=== PATIENT | female | born 1955 | race Caucasian/White ===

== ENCOUNTER → 2016-12-31 | Outpatient (CLI) | payer MEDICAID | LOC: FIMAGING 14:12 | DX: Z12.31 Encounter for screening mammogram for malignant neoplasm of breast (principal) | CPT/HCPCS: G0202 ==

== ENCOUNTER → 2017-01-09 | Outpatient (CLI) | payer MEDICAID | LOC: FIMAGING 09:00 | PROVIDERS: ATTEND Internal Medicine | DX: R92.8 Other abnormal and inconclusive findings on diagnostic imaging of breast (principal); Z09 Encounter for follow-up examination after completed treatment for conditions other than malignant neoplasm ==

== ENCOUNTER → 2017-01-21 | Outpatient (CLI) | payer MEDICAID ==
[~2017-01-21] MED LIST: THROMBIN (BOVINE) 5,000 UNIT VIAL TP ONE
[2017-02-01 08:39] LABS: ACCESSION # HR17-17333; INTERPRETATION See Comments
== END ==
LOC: FIMAGING 11:36
PROVIDERS: ATTEND Internal Medicine
PROC: 0HBT3ZX Excision of Right Breast, Percutaneous Approach, Diagnostic (ICD-10-PCS; principal; 2017-01-21)
DX: C50.411 Malignant neoplasm of upper-outer quadrant of right female breast (principal); R92.0 Mammographic microcalcification found on diagnostic imaging of breast
CPT/HCPCS: G0206

== ENCOUNTER → 2017-02-08 | Outpatient (CLI) | payer MEDICAID | LOC: FIMAGING 14:10 | PROVIDERS: ATTEND Internal Medicine Hematology & Oncology | DX: C50.411 Malignant neoplasm of upper-outer quadrant of right female breast (principal) ==

== ENCOUNTER → 2017-02-10 | Outpatient (CLI) | payer MEDICAID | LOC: FIMAGING 14:04 | PROVIDERS: ATTEND Internal Medicine Hematology & Oncology | DX: R05 Cough (principal); C50.919 Malignant neoplasm of unspecified site of unspecified female breast ==

== ENCOUNTER → 2017-02-12 | Outpatient (CLI) | payer MEDICAID ==
[~2017-02-12] MED LIST changes: +LIDOCAINE 1% 30 ML SDV ONE; +NA BICARBONATE 50 MEQ/50 ML VIAL ONE; -THROMBIN (BOVINE) 5,000 UNIT VIAL TP ONE
== END ==
LOC: FIMAGING 12:13
PROVIDERS: ATTEND Internal Medicine Hematology & Oncology
DX: R59.0 Localized enlarged lymph nodes (principal); C50.911 Malignant neoplasm of unspecified site of right female breast

== ENCOUNTER → 2017-02-14 | Outpatient (CLI) | payer MEDICAID | LOC: BRMIMAGING 14:13 | PROVIDERS: ATTEND Internal Medicine Hematology & Oncology | DX: Z13.820 Encounter for screening for osteoporosis (principal); C50.411 Malignant neoplasm of upper-outer quadrant of right female breast ==

== ENCOUNTER → 2017-02-14 | Outpatient (CLI) | payer MEDICAID ==
[~2017-02-14] MED LIST changes: +GADOBUTROL 10 ML VIAL IVP ONE; -LIDOCAINE 1% 30 ML SDV ONE; -NA BICARBONATE 50 MEQ/50 ML VIAL ONE
== END ==
LOC: FIMAGING 07:05
PROVIDERS: ATTEND Surgery
DX: C50.411 Malignant neoplasm of upper-outer quadrant of right female breast (principal)
CPT/HCPCS: 0159T; 77059; A9585; C8908

== ENCOUNTER → 2017-02-25 | Outpatient (CLI) | payer MEDICAID ==
[~2017-02-25] MED LIST changes: -GADOBUTROL 10 ML VIAL IVP ONE; +LIDOCAINE 1% 30 ML SDV ONE; +NA BICARBONATE 50 MEQ/50 ML VIAL ONE
== END ==
LOC: FIMAGING 12:13
PROVIDERS: ATTEND Internal Medicine Hematology & Oncology
PROC: 07B33ZX Excision of Right Upper Extremity Lymphatic, Percutaneous Approach, Diagnostic (ICD-10-PCS; principal; 2017-02-25)
DX: N63 Unspecified lump in breast (principal)

== ENCOUNTER → 2017-03-08 | Outpatient (CLI) | payer MEDICAID | LOC: FIMAGING 07:31 | PROVIDERS: ATTEND Surgery | PROC: 3E0W3HZ Introduction of Radioactive Substance into Lymphatics, Percutaneous Approach (ICD-10-PCS; principal; 2017-03-08) | DX: C50.919 Malignant neoplasm of unspecified site of unspecified female breast (principal) | CPT/HCPCS: 38792; A9520 ==

== ENCOUNTER 2017-04-12 08:34 | Inpatient (IN) | payer MEDICAID ==
[2017-04-12] MEDS ORDERED: LIDOCAINE 1% 2 ML INJ ID PRN (08:59)
[2017-04-12] MEDS ORDERED: LR 1,000 ML IV ONE (08:59)
[2017-04-12] MEDS ORDERED: BUPIVACAINE 0.25% 30 ML SDV ONE (09:44)
[2017-04-12] MEDS ORDERED: BACITRACIN 50,000 UNITS/10 ML SYR IRR ONE (09:45)
[2017-04-12] MEDS ORDERED: GENTAMICIN SULFATE 80 MG/2 ML VIAL ONE (09:45)
[2017-04-12] MEDS ORDERED: ceFAZolin 1 GM/5 ML SYR ONE (09:45)
[2017-04-12] MEDS ORDERED: SCOPOLAMINE HYDROBROMIDE 1.5 MG PATCH TD ONE ×2 (09:47→09:54)
[2017-04-12] MEDS ORDERED: MIDAZOLAM 2 MG/2 ML VIAL IVP ONE (09:47)
--- NOTE | 2017-04-12 09:49 | PDANEPAE ---
ANE History of Present Illness Patient presents for mastectomy and reconstruction ANE Past Medical History - Cardiovascular History Hx Hypertension: No Hx Arrhythmias: No Hx Chest Pain: No Hx Coronary Artery / Peripheral Vascular Disease: No Hx CHF / Valvular Disease: No Hx Palpitations: No - Pulmonary History Hx COPD: No Hx Asthma/Reactive Airway Disease: No Hx Recent Upper Respiratory Infection: No Hx Oxygen in Use at Home: No Hx Sleep Apnea: No Sleep Apnea Screening Result - Last Documented: Negative Pulmonary History Comment: PROLONGED COUGH 02/10/17 TREATED WITH ANTIBIOTIC - Neurologic History Hx Cerebrovascular Accident: No Hx Seizures: No Hx Dementia: No - Endocrine History Hx Diabetes: No Endocrine History Comment: HYPOTHYROID - Renal History Hx Renal Disorders: No - Liver History Hx Hepatic Disorders: No - Neurological & Psychiatric Hx Hx Neurological and Psychiatric Disorders: Yes Neurological / Psychiatric History Comment: MAJOR DEPRESSIVE DISORDER. ANXIETY - Cancer History Hx Cancer: Yes Cancer History Comment: BREAST - Congenital Disorder History Hx Congenital Disorders: No - GI History Hx Gastrointestinal Disorders: No - Other Health History Other Health History: CHRONIC HERPES - Chronic Pain History Chronic Pain: No - Surgical History Prior Surgeries: RT LUMPECTOMY 02/2017. APPY/LESLYE. RT ANKLE RECONSTRUCTION ANE Review of Systems - Exercise capacity Exercise capacity: >=4 METS METS (RN): 5 METS ANE Patient History - Allergies Allergies/Adverse Reactions: Sulfa (Sulfonamide Antibiotics) Allergy (Verified 04/02/17 19:26) Rash - Home Medications Home Medications: Acyclovir 800 mg PO DAILY 04/02/17 [Last Taken 04/12/17] Bupropion HCl [Wellbutrin Xl] 300 mg PO DAILY 04/02/17 [Last Taken 04/12/17] Escitalopram Oxalate [Lexapro] 20 mg PO DAILY 04/02/17 [Last Taken 04/12/17] Levothyroxine [Synthroid 75 mcg (*)] 75 mcg PO DAILY06 04/02/17 [Last Taken ] Liothyronine Sodium [Cytomel 25 mcg (*)] 12.5 mcg PO DAILY 04/02/17 [Last Taken 04/12/17] Multivitamins [Multivitamin (*)] 1 each PO DAILY 04/02/17 [Last Taken 04/12/17] - NPO status NPO Since - Liquids (Date): 04/12/17 NPO Since - Liquids (Time): 07:00 NPO Since - Solids (Date): 04/11/17 NPO Since - Solids (Time): 23:00 - Anes Hx Anes Hx: post operative nausea - Smoking Hx Smoking Status: Never smoked ANE Labs/Vital Signs - Vital Signs Blood Pressure: 113/66 Heart Rate: 74 Respiratory Rate: 16 O2 Sat (%): 92 Height: 173.99 cm Weight: 86.183 kg ANE Physical Exam - Airway Mallampati Score: Class 2 Mouth exam: normal dental/mouth exam - Pulmonary Pulmonary: no respiratory distress - Cardiovascular Cardiovascular: regular rate and rhythym - ASA Status ASA Status: II ANE Anesthesia Plan Anesthesia Plan: general endotracheal anesthesia, GA w LMA (RBA discussed, patient agrees to proceed)
[2017-04-12] MEDS ORDERED: MIDAZOLAM 2 MG/2 ML VIAL ONE (09:54)
[2017-04-12] MEDS ORDERED: PROPOFOL/EMULSION 500 MG/50 ML BOTTLE IV ONE ×2 (09:57→12:07)
[2017-04-12] MEDS ORDERED: PROPOFOL 200 MG/20 ML VIAL ONE (09:57)
[2017-04-12] MEDS ORDERED: fentaNYL 100 MCG/2 ML INJ ONE ×4 (09:57→14:50)
--- NOTE | 2017-04-12 10:49 | PDHPUP ---
History & Physical Update H&P update statement: This history and physical update is based on an assessment of the patient which was completed after admission or registration (within 24 hours), but prior to the surgery/procedure. H&P update: H&P reviewed & patient examined, no change in patient's condition since H&P completed
[2017-04-12] MEDS ORDERED: BUPIVACAINE/EPI 0.5% 30 ML SDV ONE (11:20)
[2017-04-12] MEDS ORDERED: HYDROmorphONE/DILAUDID 1 MG/ML SYR IVP PRN (12:18)
[2017-04-12] MEDS ORDERED: TEMAZEPAM 15 MG CAP PO PRN (12:18)
[2017-04-12] MEDS ORDERED: ONDANSETRON 4 MG/2 ML VIAL IVP PRN ×2 (12:18→13:58)
[2017-04-12] MEDS ORDERED: HYDROCODONE/APAP 5/325 TAB PO PRN (12:18)
[2017-04-12] MEDS ORDERED: PROMETHAZINE HCL 25 MG/ML INJ IVP PRN (12:18)
[2017-04-12] MEDS ORDERED: DEXAMETHASONE 4 MG/ML VIAL ONE (12:24)
[2017-04-12] MEDS ORDERED: ONDANSETRON 4 MG/2 ML VIAL ONE (12:24)
[2017-04-12] MEDS ORDERED: LR 1,000 ML IV SCH (12:30)
[2017-04-12] MEDS ORDERED: PHENYLEPHRINE HCL 100 MCG/ML SYR ONE ×2 (13:09)
[2017-04-12] MEDS ORDERED: NALOXONE HCL 0.4 MG/ML INJ IVP PRN (13:58)
--- NOTE | 2017-04-12 14:16 | POSTANESTH ---
Post Anesthetic Evaluation Cardiovascular Status: Normal, Stable Respiratory Status: Normal, Stable Level of Consciousness/Mental Status: Can Participate in Eval Pain Control: Adequate, Prn Tx Ordered Nausea/Vomiting Control: Adequate, Prn Tx Ordered Complications Possibly Related to Anesthesia: None Noted
[2017-04-12] MEDS: fentaNYL 100 MCG/2 ML INJ IVP PRN ×2 (14:52→15:02)
[2017-04-12] MEDS: ceFAZolin 2 GM/DEXTROSE 100 ML IV SCH ×2 (16:16→23:27)
--- NOTE | 2017-04-12 17:57 | POSTOPPROG ---
Post Op Note Date of Operation: 04/12/17 Surgeon: Chaim Ramirez Features Editor: Flor Jacobs PA-C Anesthesiologist: Good Wells MD Anesthesia: GET(General Endotracheal) Pre-op Diagnosis: Right breast cancer Post-op Diagnosis: Same Procedure: Right modified radical mastectomy, left SCV port, immed TE reconstruction Inf/Abcess present in the surg proc area at time of surgery?: No EBL: 50-100 Drains: Ramon Bates Specimen(s): breast, nodes
[2017-04-12] MEDS: KETOROLAC 15 MG/1 ML SDV IVP SCH ×2 (18:16→23:22)
--- NOTE | 2017-04-12 18:23 | GOP ---
[f rep st] OPERATIVE REPORT DATE OF OPERATION: 04/12/2017 SURGEON: Lavonne Paniagua Jr., MD PERSONNEL RESEARCH SCIENTIST: Orlando Rachel, CONCRETE FENCE BUILDER. By surgeon request. Skilled physician office assistant was necessary du e to the technical complexity of the case and desire to minimize patient anesthesia time. ANESTHESIA: General inhalational anesthetic. PREOPERATIVE DIAGNOSIS: Right breast cancer. POSTOPERATIVE DIAGNOSIS: Right breast cancer. PROCEDURE PERFORMED: Immediate right breast reconstruction following mastectomy and axillary lymph node dissection. FINDINGS: ESTIMATED BLOOD LOSS: During reconstruction was less than 10 cc. INDICATIONS: The patient is a female diagnosed with right breast cancer referred by Dr. Chaim Ramirez to discuss mastectomy reconstruction. She was deemed an excellent candidate for immediate tissue e xpander placement at the time of mastectomy. She was taken to the operating room for that purpose. DESCRIPTION OF PROCEDURE: After risks and benefits of procedure were explained to the patient highl ighting bleeding, infection, need for tissue oracle adf developer removal, asymmetry, damage to vessels or nerve s, numbness, weakness, and need for revisional procedures, formal operative consent was obtained. S he was taken to the operating room. After right-sided mastectomy and right axillary dissection were performed by Dr. Ramirez, the pocket was irrigated with triple antibiotic saline. The field was re-draped with new sterile towels. New ins trumentation, electrocautery, and suction were utilized. Skin edges were wiped down with triple ant ibiotic saline, and the pocket rinsed a final time. A subpectoral pocket was dissected to allow wendi cement of the tissue oracle adf developer. This was performed through an inferomedial incision in the origin of the pectoralis major muscle. Pocket was dissected beneath serratus and the pectoralis minor muscle . Once it was free to fit the tissue oracle adf developer, the tissue oracle adf developer was thoroughly tested, evacuated of air, and filled with 300 cc of normal saline. It was soaked in triple antibiotic saline. It wa s then sutured down to the chest wall in the correct anatomic position using 2-0 PDS suture. An All oDerm medium contour acellular dermis graft was then triple rinsed in saline, soaked in triple antib iotic saline, and used to reconstruct the inferior pole of the breast with a running 2-0 Vicryl sutu re. The pocket was irrigated again with triple antibiotic saline solution with meticulous hemostasi s assured. Two drains were placed, 1 in the inferior gutter of the breast and 1 into the axillary d issection site. Both were sutured into place. The mastectomy flap edges were inspected and were he althy with good blood supply. The mastectomy was closed using everting deep dermal 3-0 Monocryl sut ure and further everted using surgical elsa. An additional 100 cc of fluid was placed transcutan eously into the tissue oracle adf developer for a final fill volume of 400 cc. She had light sterile dressings applied in the operating room. She was extubated in the OR, taken to the recovery room awake and in stable condition. TISSUE SOFTWARE SALES EXECUTIVE: Jonglaan [employer] 133 FX-14-T 650 cc device filled to 400 cc. DRAINS: 2 IVETTE drains were placed. MASTECTOMY WEIGHT: Approximately 675 g. COMPLICATIONS: None. /[id number]/MODL
--- NOTE | 2017-04-12 19:13 | SOAPPROG ---
SOAP Progress Note Assessment/Plan: Assessment:doing well postop. min pain. no sob. small left PTX on CXR. will repeat later this evening. discussed with nursing staff, patient and family. Plan: 04/12/17 19:11 Objective: Vital Signs Temp Pulse Resp BP Pulse Ox 36.4 C 60 16 89/61 L 97 04/12/17 18:42 04/12/17 18:42 04/12/17 18:42 04/12/17 18:42 04/12/17 18:42 04/11/17 04/12/17 04/13/17 05:59 05:59 05:59 Intake Total 325 Output Total 50 Balance 275 ICD10 Worksheet Patient Problems: Problems Problem Status Onset Breast cancer Acute - ICD10 Problem Qualifiers (1) Breast cancer Qualifiers: Breast location: B Estrogen receptor status: E Patient sex: P Laterality: L
--- NOTE | 2017-04-12 20:13 | GOP ---
[f rep st] OPERATIVE REPORT DATE OF OPERATION: 04/12/2017 SURGEON: Chaim Ramirez MD PLASTIC SURGEON: Lavonne Paniagua MD TURFGRASS MANAGEMENT PROFESSOR: Flor Iraheta PA-C. ANESTHESIA: General. ANESTHESIOLOGIST: Kartik Wells MD PREOPERATIVE DIAGNOSIS: Locally advanced right breast carcinoma. POSTOPERATIVE DIAGNOSIS: Locally advanced right breast carcinoma. PROCEDURE PERFORMED: 1. Right modified radical mastectomy with left subclavian vein single-lumen power port placement. 2. Immediate tissue wire weaving loom setter reconstruction. FINDINGS: See below. INDICATIONS: 61-year-old female with a large locally advanced right breast carcinoma. She underwent attempted lumpectomy with sentinel node sampling. The patient was found have a large tumor with multiple positive margins as well as multiple positive nodes. She is undergoing the aforementioned procedures at this time. Risks and benefits were explained of bleeding, infection, tumor recurrence, skin flap necrosis, need for additional postoperative adjuvant therapy, arm edema, nerve injury, as well as pneumothorax and poor bowel function. All questions were answered. She desires to proceed. A surgical first assistant is standard and necessary and customary for the safe performance of this procedure. DESCRIPTION OF PROCEDURE: General anesthesia was induced. The left neck was initially interrogated with ultrasonography. No succinct jugular vein was identified for port placement. The subclavian vein was next directly punctured. The clavipectoral space was notably tight. The subclavian vein was directly punctured followed by easy guidewire passage which was confirmed using intraoperative fluoroscopy. A counter incision was made on the chest wall and the port tunneled cephalad. The vein was dilated and the catheter passed toward the atrial junction without resistance. There was good venous blood return with the port withdrawal. The port was secured to the chest wall with a solitary PDS suture. The wound was closed in layers with absorbable suture followed by Dermabond. The right breast was next elliptically incised incorporating the nipple-areolar complex. Using electrocautery, skin flaps were created up to the clavicle, sternum, inframammary fold and latissimus dorsi muscle laterally. The breast was taken high up in the axillary tail of [facility]. The prior lumpectomy cavity was included in its entirety along with a small residual seroma cavity. The breast was peeled from medial to lateral, incorporating the pectoralis major fascia. This was tagged for orientation and sent for permanent processing. The axilla was densely scarred down from her prior sentinel node sampling. The axillary vein was identified and dissected inferiorly. The indurated mass was off the chest wall. The intercostal brachial nerve was transected during this dissection, given its inclusion in the aforementioned inflammatory change. The long thoracic nerve and thoracodorsal nerves were easily identified and preserved throughout the remaining dissection. The remaining axillary contents were all removed and sent for permanent processing. Satisfactory hemostasis was assured throughout the breast cavity and axilla. Care of the case was turned to Dr. Paniagua for tissue wire weaving loom setter placement and wound closure. /[id number]/MODL MTDD
[2017-04-13] MEDS ORDERED: LEVOTHYROXINE 75 MCG TAB PO SCH (06:00)
[2017-04-13] MEDS: ceFAZolin 2 GM/DEXTROSE 100 ML IV SCH (06:13)
[2017-04-13] MEDS: KETOROLAC 15 MG/1 ML SDV IVP SCH ×2 (06:13→12:46)
[2017-04-13] MEDS ORDERED: buPROPion XL 150 MG TAB PO SCH (09:00)
[2017-04-13] MEDS ORDERED: NON-FORMULARY NEW DRUG (Acyclovir [Acyclovir] 800 MG) PO SCH (09:00)
[2017-04-13] MEDS ORDERED: NON-FORMULARY NEW DRUG (Escitalopram Oxalate [Lexapro] 20 MG) PO SCH (09:00)
[2017-04-13] MEDS ORDERED: ACYCLOVIR 400 MG TAB PO SCH (09:00)
[2017-04-13] MEDS ORDERED: ENOXAPARIN 30 MG/0.3 ML SYR SC SCH (09:00)
[2017-04-13] MEDS ORDERED: ESCITALOPRAM OXALATE 10 MG TAB PO SCH (09:00)
[2017-04-13] MEDS ORDERED: NON-FORMULARY NEW DRUG (Bupropion Hcl [Wellbutrin Xl] 300 MG) PO SCH (09:00)
[2017-04-13] MEDS ORDERED: LIOTHYRONINE SODIUM 25 MCG TAB PO SCH (09:00)
--- NOTE | 2017-04-13 10:15 | SOAPPROG ---
SOAP Progress Note Assessment/Plan: Assessment: no overnight issues. min left chest pain. no sob. min surg site pain. avss. flaps pink. dianna serosang. port site clean. doing well. small left PTX - will repeat one final CXR prior to discharge to ensure no significant enlargement - no tube needed at this time. care plan discussed with patient and nursing staff. Plan: 04/12/17 19:11 04/13/17 10:14 Objective: Vital Signs Temp Pulse Resp BP Pulse Ox 36.8 C 68 16 89/61 L 93 04/13/17 08:00 04/13/17 08:00 04/13/17 08:00 04/13/17 08:00 04/13/17 08:00 04/12/17 04/13/17 04/14/17 05:59 05:59 05:59 Intake Total 2522 Output Total 1510 470 Balance 1007 -470 ICD10 Worksheet Patient Problems: Problems Problem Status Onset Breast cancer Acute - ICD10 Problem Qualifiers (1) Breast cancer Qualifiers: Breast location: B Estrogen receptor status: E Patient sex: P Laterality: L
[2017-04-13 12:14] VITALS: TEMP 98.7
[2017-04-13 13:04] VITALS: BP 96/62; PULSE 71; RESP 17
--- NOTE | 2017-04-13 14:35 | GOP ---
[f rep st] OPERATIVE REPORT DATE OF OPERATION: 04/13/2017 SURGEON: Chaim Ramirez MD ANESTHESIA: General. PREOPERATIVE DIAGNOSIS: Left pneumothorax. POSTOPERATIVE DIAGNOSIS: Left pneumothorax. PROCEDURE PERFORMED: Percutaneous left chest tube. DESCRIPTION OF PROCEDURE: Left chest was infiltrated with 1% lidocaine. The medial second intercostal space was identified. A percutaneous tube was placed over the rib into the thoracic cavity. Bubbling was noted within the syringe. Catheter was passed to its hub. There was good rhythmical respiration noted within the Heimlich valve mechanism. Catheter was secured to the chest with a silk suture followed by Tegaderm placement. Portable chest X was obtained immediately upon completion. /[id number]/MODL MTDD
[2017-04-13 14:48] VITALS: O2SAT 92
== END 2017-04-13 15:02 | disposition home or self-care (01) | DRG 582 ==
LOC: F3E 08:34 → OBSVTOIN 12:20 → F1N 15:16
PROVIDERS: ADMIT Surgery; ATTEND Specialist
PROC: 07T50ZZ Resection of Right Axillary Lymphatic, Open Approach (ICD-10-PCS; principal; 2017-04-12 10:00)
PROC: 0HHT0NZ Insertion of Tissue Expander into Right Breast, Open Approach (ICD-10-PCS; principal; 2017-04-12 10:00)
PROC: 0HTT0ZZ Resection of Right Breast, Open Approach (ICD-10-PCS; principal; 2017-04-12 10:00)
PROC: 0W9930Z Drainage of Right Pleural Cavity with Drainage Device, Percutaneous Approach (ICD-10-PCS; 2017-04-13)
DX: C50.411 Malignant neoplasm of upper-outer quadrant of right female breast (principal); J93.9 Pneumothorax, unspecified; E03.9 Hypothyroidism, unspecified; F32.9 Major depressive disorder, single episode, unspecified
CPT/HCPCS: C1788; J1100; J1642; J1650; J1885; J2250; J2370; J2405; J2704; J3010; Q4116

== ENCOUNTER → 2017-04-16 | Outpatient (CLI) | payer MEDICAID | LOC: FIMAGING 15:10 | PROVIDERS: ATTEND Surgery | DX: J93.9 Pneumothorax, unspecified (principal) ==

== ENCOUNTER → 2017-04-19 | Outpatient (CLI) | payer MEDICAID | LOC: FIMAGING 14:38 | PROVIDERS: ATTEND Surgery | DX: J93.9 Pneumothorax, unspecified (principal); C50.911 Malignant neoplasm of unspecified site of right female breast; J90 Pleural effusion, not elsewhere classified; Z95.9 Presence of cardiac and vascular implant and graft, unspecified; Z90.11 Acquired absence of right breast and nipple ==

== ENCOUNTER → 2017-05-03 | Outpatient (CLI) | payer MEDICAID ==
[~2017-05-03] MED LIST changes: +IOPAMIDOL (ISOVUE 370) 100 ML BTL IV ONE; -LIDOCAINE 1% 30 ML SDV ONE; -NA BICARBONATE 50 MEQ/50 ML VIAL ONE
== END ==
LOC: FIMAGING 12:21
PROVIDERS: ATTEND Surgery
DX: T82.594A Other mechanical complication of infusion catheter, initial encounter (principal); C50.919 Malignant neoplasm of unspecified site of unspecified female breast
CPT/HCPCS: J1642; Q9967

== ENCOUNTER → 2017-05-24 | Outpatient (CLI) | payer MEDICAID ==
[~2017-05-24] MED LIST changes: +IOPAMIDOL (ISOVUE-300) 150 ML BTL ONE
== END ==
LOC: FIMAGING 11:50
PROVIDERS: ATTEND Nurse Practitioner
DX: T82.594A Other mechanical complication of infusion catheter, initial encounter (principal); C50.411 Malignant neoplasm of upper-outer quadrant of right female breast
CPT/HCPCS: Q9967

== ENCOUNTER → 2017-05-27 | Day surgery (SDC) | payer MEDICAID | END | disposition home or self-care (01) | LOC: FIMAGING 10:15 | PROVIDERS: ATTEND Nurse Practitioner | DX: Z46.89 Encounter for fitting and adjustment of other specified devices (principal); C50.919 Malignant neoplasm of unspecified site of unspecified female breast; Z53.9 Procedure and treatment not carried out, unspecified reason ==

== ENCOUNTER → 2017-05-29 | Outpatient (CLI) | payer MEDICAID | LOC: FIMAGING 15:05 | PROVIDERS: ATTEND Surgery | DX: Z09 Encounter for follow-up examination after completed treatment for conditions other than malignant neoplasm (principal); Z45.2 Encounter for adjustment and management of vascular access device ==

== ENCOUNTER 2017-07-18 19:50 | Inpatient (IN) | payer MEDICAID ==
[2017-07-18] MEDS ORDERED: NS 1,000 ML IV ONE ×2 (20:04→21:38)
--- NOTE | 2017-07-18 20:29 | EDPHY ---
H & P Stated Complaint: fever, cough, exhaustion x6 days Time Seen by Provider: 07/18/17 20:03 HPI/ROS: CHIEF COMPLAINT: Fever, cough, fatigue HISTORY OF PRESENT ILLNESS: This patient is a 61 y/o female with history of breast cancer diagnosed 12/2016 presenting with fever, cough, and fatigue onset earlier today. She is currently s/p mastectomy and undergoing chemotherapy. Her first treatment for Taxol was Saturday, six days ago. Following this, she began to feel fatigued and has been sleeping around 20 hours per day. She developed shortness of breath and a cough on Saturday. Her cough is increased with movement. She has had persistent nausea and vomiting which she believes could be associated with her chemotherapy, her cough, or both. She endorses muscle aches. She noted redness developing over her right breast two days ago. She has a breast treating engineer in place, placed . She has not had prior infections in that area. Today, she noted a temperature of 102 degrees Fahrenheit on her home thermometer so presents for evaluation. She denies chest pain, diarrhea, urinary complaints, or other associated symptoms. REVIEW OF SYSTEMS: A 10 point review of systems was performed and is negative with the exception of the elements mentioned in the history of present illness. - Personal History Current Tetanus/Diphtheria Vaccine: Yes Current Tetanus Diphtheria and Acellular Pertussis (TDAP): Yes - Medical/Surgical History PMH: 1. Breast cancer 2. Right mastectomy 3. Asthma 4. Depression 5. Cholecystectomy 4. Ankle surgery Hx Asthma: Yes Hx Chronic Respiratory Disease: No Hx Diabetes: No Hx Cardiac Disease: No Hx Renal Disease: No Hx Cirrhosis: No Hx Alcoholism: No Hx HIV/AIDS: No Hx Splenectomy or Spleen Trauma: No Other PMH: S/P Sarah-1976;S/P Ankle Repair-1996;S/P Rt Breast Lumpectomy W/Node biopsy;Depression;Asthma,. right mastectomy,. breast CA - Social History Smoking Status: Never smoked Additional Social History: at bedside. . - Physical Exam Exam: General Appearance: Alert, nontoxic-appearing Eyes: Pupils equal and round, no conjunctival injection ENT, Mouth: Mucous membranes moist, no pharyngeal erythema Neck: Normal inspection, no adenopathy Right breast: s/p mastectomy; swelling, tenderness, erythema of entire right breast area Respiratory: Lungs are clear to auscultation Cardiovascular: Regular rate and rhythm Gastrointestinal: Abdomen is soft and non-tender Neurological: A&O, nonfocal, normal gait Skin: Warm and dry. Healing rash related to prior AC chemotherapy treatment. Extremities: Nontender, no pedal edema Psychiatric: Mood and affect normal Constitutional: Initial Vital Signs Temperature (C) 37.6 C 07/18/17 19:55 Heart Rate 125 H 07/18/17 19:55 Respiratory Rate 22 H 07/18/17 19:55 Blood Pressure 99/66 L 07/18/17 19:55 O2 Sat (%) 96 07/18/17 19:55 O2 Delivery Mode Room Air Allergies/Adverse Reactions: soy Allergy (Severe, Verified 07/19/17 09:24) Sulfa (Sulfonamide Antibiotics) Allergy (Verified 07/18/17 19:59) Rash Home Medications: Medication Instructions Recorded Bupropion HCl [Wellbutrin Xl] 300 mg PO DAILY 04/02/17 Escitalopram Oxalate [Lexapro] 20 mg PO DAILY 04/02/17 Liothyronine Sodium [Cytomel 25 12.5 mcg PO DAILY 04/02/17 mcg (*)] Multivitamins [Multivitamin (*)] 1 each PO DAILY 04/02/17 Hydrocodone/APAP 5/325 [Decorah 1 - 2 tab PO Q4HRS PRN #0 tab 04/13/17 5/325 (*)] Acyclovir [Zovirax 400 mg (*)] 400 mg PO DAILY 07/18/17 LORazepam [Lorazepam] 0.5 mg PO TID PRN 07/18/17 Levothyroxine [Synthroid 50 mcg 50 mcg PO DAILY06 07/18/17 (*)] Nystatin 100,000 unit PO QID PRN 07/18/17 Ondansetron [Ondansetron Odt] 8 mg PO Q6 PRN 07/18/17 Prochlorperazine Maleate 10 mg PO TID PRN 07/18/17 [Compazine 10mg (*)] Medical Decision Making - Diagnostics Imaging Results: Chest X-Ray 07/18/17 20:04 Impression: Chest negative for acute abnormality, with no definite fever source identified. ED Course/Re-evaluation: This pt presents with right breast cellulitis and fever. Meets SIRS criteria because of heart rate and respiratory rate. Underlying breast implant, query implant-related infection.. White count is normal and there is no evidence of neutropenia. Blood cultures drawn. IV normal saline 1 L. Ancef 1 g IV given. Chest x-ray reveals no evidence of pneumonia. Initial lactate is normal. 21:[address] Nava, hospitalist. He accepts admission for IV antibiotics. Repeat heart rate and blood pressure are normal after IV fluids. Temperature to 102. Ibuprofen 600 mg orally given. Differential Diagnosis: Differential diagnosis includes pyelonephritis, cholecystitis, influenza, cellulitis, pneumonia, abscess, meningitis. - Data Points Laboratory Results: Laboratory Results 07/18/17 20:30 07/18/17 20:30 07/18/17 20:30 Smear Review By Rhonda VIVEROS MD Medications Given: Acetaminophen (Tylenol) 650 mg PO Q4HRS PRN PRN Reason: Pain, Mild/Fever, Can Take PO Stop: 01/14/18 23:04 Last Admin: 07/19/17 12:23 Dose: 650 mg Acyclovir (Acyclovir) 400 mg PO DAILY EDWIN Stop: 08/18/17 08:59 Last Admin: 07/19/17 09:31 Dose: 400 mg Bupropion HCl (Wellbutrin Xl) 300 mg PO DAILY EDWIN Stop: 01/15/18 08:59 Last Admin: 07/19/17 09:32 Dose: 300 mg Escitalopram Oxalate (Lexapro) 20 mg PO DAILY EDWIN Stop: 01/15/18 08:59 Last Admin: 07/19/17 09:33 Dose: 20 mg Cefazolin Sodium/Dextrose (Ancef 1 Gm (Premix)) 50 mls @ 200 mls/hr IV Q8H EDWIN PRN Reason: Protocol Stop: 08/18/17 03:59 Last Admin: 07/19/17 11:20 Dose: 50 mls Sodium Chloride (Ns) 1,000 mls @ 75 mls/hr IV CONT [facility] Stop: 01/14/18 23:14 Last Admin: 07/19/17 00:00 Dose: 1,000 mls Multivitamins (Tab-A-Cash) 1 each PO DAILY EDWIN Stop: 01/15/18 08:59 Last Admin: 07/19/17 09:33 Dose: 1 each Nystatin (Mycostatin Oral Liquid) 100,000 unit PO QID PRN; Protocol PRN Reason: THRUSH Stop: 08/17/17 23:08 Last Admin: 07/19/17 05:28 Dose: 100,000 unit Ondansetron HCl (Zofran) 4 mg IVP Q4HRS PRN PRN Reason: Nausea/Vomiting, Can't Take PO Stop: 01/14/18 23:04 Last Admin: 07/19/17 05:24 Dose: 4 mg Promethazine HCl (Phenergan) 6.25 - 12.5 mg IVP Q6HRS PRN PRN Reason: Nausea/Vomiting, Use 2nd Stop: 01/14/18 23:04 Last Admin: 07/19/17 11:20 Dose: 6.25 mg Discontinued Medications Acetaminophen (Tylenol) 1,000 mg PO ONCE ONE Stop: 07/18/17 21:27 Last Admin: 07/18/17 21:38 Dose: 1,000 mg Enoxaparin Sodium (Lovenox) 40 mg SC DAILY EDWIN Stop: 01/15/18 08:59 Last Admin: 07/19/17 09:34 Dose: 40 mg Sodium Chloride (Ns) 1,000 mls @ 0 mls/hr IV ONCE ONE; Wide Open PRN Reason: Protocol Stop: 07/18/17 20:05 Last Admin: 07/18/17 20:10 Dose: 1,000 mls Cefazolin Sodium/Dextrose (Ancef 1 Gm (Premix)) 50 mls @ 200 mls/hr IV EDNOW ONE PRN Reason: Protocol Stop: 07/18/17 20:48 Last Admin: 07/18/17 21:07 Dose: 50 mls Sodium Chloride (Ns) 1,000 mls @ 0 mls/hr IV ONCE ONE PRN Reason: Wide Open Stop: 07/18/17 21:39 Last Admin: 07/18/17 21:38 Dose: 1,000 mls Sodium Chloride (Ns) 1,000 mls @ 3,000 mls/hr IV ONCE ONE Stop: 07/19/17 12:15 Last Admin: 07/19/17 12:11 Dose: 1,000 mls Departure - Departure Disposition: [facility] Acute Clinical Impression: Cellulitis of right breast Condition: Fair Report Scribed for: Sadia Shields Report Scribed by: Sharon Frederick Date of Report: 07/18/17 Time of Report: 20:29 Physician Review and Approval Statement: 07/18/17 20:29 Portions of this note were transcribed by a certified medical technician assistant. I personally performed a history, physical exam, medical decision making, and confirmed accuracy of information the transcribed note.
[2017-07-18 20:49] LABS: ABSOLUTE IMMATURE GRANULOCYTES 0.09 10^3/uL (0.00-0.10); ADD DIFF? NO; ADD MORPH? YES; ADD SCAN? NO; ATYPICAL LYMPHOCYTE FLAG 0 (0-99); FRAGMENT RBC FLAG 20 (0-99); HEMATOCRIT 25.8 % (38.0-47.0); HEMOGLOBIN 8.7 g/dL (12.6-16.3); LEFT SHIFT FLG 0 (0-99); LIPEMIA HEMOLYSIS FLAG 80 (0-99); MEAN CELL HEMOGLOBIN 30.1 pg (27.9-34.1); MEAN CELL HEMOGLOBIN CONCENTR. 33.7 g/dL (32.4-36.7); MEAN CELL VOLUME 89.3 fL (81.5-99.8); MEAN PLATELET VOLUME 9.8 fL (8.7-11.7); PLATELET CLUMPS FLAG 10 (0-99); PLATELET COUNT 341 10^3/uL (150-400); RED BLOOD CELL COUNT 2.89 10^6/uL (4.18-5.33)
[2017-07-18 20:53] LABS: RED CELL DISTRIBUTION WIDTH 21.3 % (11.5-15.2)
[2017-07-18 21:03] LABS: ANION GAP 11 mEq/L (8-16); CALCIUM 8.9 mg/dL (8.5-10.4); CARBON DIOXIDE 20 mEq/l (22-31); CHLORIDE 98 mEq/L (97-110); GLOMERULAR FILTRATION RATE 57; GLUCOSE 106 mg/dL (70-100); POTASSIUM 4.1 mEq/L (3.5-5.2); SODIUM 129 mEq/L (134-144)
[2017-07-18 21:16] LABS: ELLIPTOCYTES 1+; KERATOCYTES 1+; MACROCYTES 1+; MICROCYTES 1+; PLATELET ESTIMATE ADEQUATE (ADEQ)
[2017-07-18] MEDS ORDERED: ACETAMINOPHEN 500 MG TAB PO ONE (21:26)
[2017-07-18] MEDS ORDERED: ONDANSETRON 4 MG/2 ML VIAL IVP PRN (23:05)
[2017-07-18] MEDS ORDERED: LORazepam 0.5 MG TAB PO PRN (23:05)
[2017-07-18] MEDS ORDERED: HYDROCODONE/APAP 5/325 TAB PO PRN (23:05)
[2017-07-19] MEDS: NS 1,000 ML IV SCH
[2017-07-19 00:05] LABS: COLOR YELLOW; LEUKOCYTE ESTERASE,URINE NEGATIVE (NEGATIVE); NITRITE,URINE NEGATIVE (NEGATIVE)
[2017-07-19 05:16] LABS: % IMMATURE GRANULYOCYTES 0.8 % (0.0-1.1); ABSOLUTE IMMATURE GRANULOCYTES 0.05 10^3/uL (0.00-0.10); ADD DIFF? NO; ADD MORPH? YES; ADD SCAN? NO; ATYPICAL LYMPHOCYTE FLAG 0 (0-99); FRAGMENT RBC FLAG 20 (0-99); HEMATOCRIT 22.6 % (38.0-47.0); HEMOGLOBIN 7.2 g/dL (12.6-16.3); LEFT SHIFT FLG 10 (0-99); LIPEMIA HEMOLYSIS FLAG 80 (0-99); MEAN CELL HEMOGLOBIN 29.9 pg (27.9-34.1); MEAN CELL HEMOGLOBIN CONCENTR. 31.9 g/dL (32.4-36.7); MEAN CELL VOLUME 93.8 fL (81.5-99.8); MEAN PLATELET VOLUME 9.8 fL (8.7-11.7); PLATELET CLUMPS FLAG 10 (0-99); PLATELET COUNT 272 10^3/uL (150-400); RED BLOOD CELL COUNT 2.41 10^6/uL (4.18-5.33)
[2017-07-19 05:21] LABS: RED CELL DISTRIBUTION WIDTH 21.5 % (11.5-15.2)
[2017-07-19] MEDS: NYSTATIN SUSP 500000 UNIT/5 ML UDCUP PO PRN (05:28)
[2017-07-19 05:42] LABS: ANION GAP 9 mEq/L (8-16); CALCIUM 8.1 mg/dL (8.5-10.4); CARBON DIOXIDE 18 mEq/l (22-31); CHLORIDE 110 mEq/L (97-110); CREATININE 0.8 mg/dL (0.6-1.0); GLOMERULAR FILTRATION RATE > 60; GLUCOSE 90 mg/dL (70-100); MAGNESIUM 2.1 mg/dL (1.6-2.3); POTASSIUM 4.4 mEq/L (3.5-5.2); SODIUM 137 mEq/L (134-144)
[2017-07-19 06:15] LABS: PLATELET ESTIMATE ADEQUATE (ADEQ)
[2017-07-19 06:16] LABS: ELLIPTOCYTES 1+; MACROCYTES 1+; MICROCYTES 1+
[2017-07-19 06:17] LABS: KERATOCYTES 1+
[2017-07-19] MEDS ORDERED: ENOXAPARIN 40 MG/0.4 ML SYR SC SCH (09:00)
[2017-07-19] MEDS: ACYCLOVIR 400 MG TAB PO SCH (09:31)
[2017-07-19] MEDS: buPROPion XL 150 MG TAB PO SCH (09:32)
[2017-07-19] MEDS: MULTIVITAMINS 1 EACH TAB PO SCH (09:33)
[2017-07-19] MEDS: ESCITALOPRAM OXALATE 10 MG TAB PO SCH (09:33)
--- NOTE | 2017-07-19 10:19 | GHP ---
[f rep st] HISTORY AND PHYSICAL DATE OF ADMISSION: 07/18/2017 DATE OF SERVICE: 07/19/2017 SOURCE: Patient provides history, appears reliable. Her EMR was also reviewed. CHIEF COMPLAINT: Right breast cellulitis and fever. HISTORY OF PRESENT ILLNESS: This is a very pleasant 61-year-old female with history of recently diagnosed right breast cancer, status post lumpectomy and status post implant spacer, who presents to the emergency department with complaints of 2-day history of fever, fatigue and cough. The patient states that she began to notice some increased warmth and swelling on the right breast several days ago. She has been increasingly fatigued and sleeping almost 20-22 hours of her last few days. She has also noted some increase in dyspnea on exertion during this time of fatigue. She denies any chest pain or palpitations. The patient has not had any nausea, vomiting or diarrhea. She has not had any increased lower extremity edema. At home, patient reports that she began to feel feverish and measured her temperature, that was over 102 Fahrenheit. She was advised to go to the emergency department for any fevers greater than 100.5, as she is on paclitaxel therapy. She is followed by [facility] with Dr. Chasity Ramirez. REVIEW OF SYSTEMS: Otherwise negative, except as noted above. ALLERGIES: Sulfa. The patient also reports a gluten sensitivity, resulting in some dyspnea. HOME MEDICATIONS: As per EMR. 1. Multivitamin 1 tab p.o. daily. 2. Zofran 8 mg p.o. q.6 hours p.r.n. 3. Nystatin 1000 units p.o. q.i.d. p.r.n. 4. Lorazepam 0.5 mg p.o. t.i.d. p.r.n. 5. Acyclovir 400 mg p.o. daily. 6. Compazine 10 mg p.o. t.i.d. p.r.n. 7. Liothyronine 12.5 mcg p.o. daily. 8. Levothyroxine 50 mcg p.o. daily. 9. Citalopram 20 mg p.o. daily. 10. Bupropion 300 mg p.o. daily. 11. [place] 5/325 one to two tabs p.o. q.4 hours p.r.n. for pain. PAST MEDICAL HISTORY: Significant for breast cancer, hypothyroidism, depression , anxiety. PAST SURGICAL HISTORY: Significant for lumpectomy with lymph node biopsy, ankle ORIF, open cholecystectomy. FAMILY HISTORY: Significant for sister who is healthy. Mother with melanoma. Father with pulmonary fibrosis. Both parents now. Son who is 18 and healthy. SOCIAL HISTORY: Patient is employed. She is and lives with her and son. She does not smoke, drink or do drugs. Code status is full. Patient with advanced directives, and her is MD MELTON. PHYSICAL EXAMINATION: VITAL SIGNS: Upon arrival to the emergency department, blood pressure 99/66, heart rate 125, respiratory rate 22, O2 saturation 96%, temperature 37.6. Vitals available time of interview, blood pressure 83/55 with a MAP of 64, heart rate 79, respiratory rate is 16, O2 saturation 97% on room air, with temperature of 37. GENERAL: No acute distress. Very pleasant adult female, is resting comfortably in bed. HEAD: Normocephalic, atraumatic. EYES: Extraocular muscles grossly intact. No scleral icterus or conjunctival injection. Pupils are equal, round and symmetric. ENT: Mucous membranes appear slightly dry. No pharyngeal erythema or exudates. NECK: Supple. Trachea midline. CV: Regular rate and rhythm. No murmurs, rubs or gallops appreciated. RESPIRATORY: Lungs clear to auscultation bilaterally. No wheezes, rales or rhonchi. ABDOMEN: Positive bowel sounds. Soft, nontender to palpation. CHEST: Patient's right breast with a well-healed surgical scar and with surrounding erythema, increased warmth and slightly firm to palpation, but no fluctuance. SKIN: Patient with multiple maculopapular lesions diffusely in various stages of resolving. ASSESSMENT AND PLAN: 1. History of breast cancer, on chemotherapy. Patient without any neutropenia at this time. She does have anemia. Not requiring any neutropenic precautions at this time. However, blood cultures have been obtained, and patient has been started on IV antibiotics. 2. Sepsis. Patient qualifies with acute SOFA (sequential organ failure assessment) score based on tachycardia and hypotension. Source is likely related to cellulitis only, as she has no evidence of urinary tract infection or upper respiratory infection. 3. Hypotension. Patient's baseline appears low normal. The patient denies any symptoms of lightheadedness, chest pain, shortness of breath currently or palpitations. We will continue with some intravenous fluid and continue to monitor. 4. Hypothyroidism. We will need to clarify patient's levothyroxine supplementation dosing and order as appropriate. 5. Depression. The patient's mood is stable at this time. Continue Lexapro. 6. Anemia, likely related to patient's recent chemotherapy. She is without neutropenia or thrombocytopenia at this time. Patient without any evidence of active bleeding. Will monitor closely and continue with prophylactic anticoagulation, unless patient's hemoglobin and hematocrit or platelets drop. 7. Fluid, electrolyte, nutrition. Continue with IV fluids. Encourage oral intake as tolerated. Electrolyte replacement p.r.n. Diet as tolerated. 8. Prophylaxis. Sequential compression devices and Lovenox have been ordered, but will need to monitor hemoglobin and hematocrit closely. CODE STATUS: Full. Patient with advance directives, and her is medical power of earring maker. DISPOSITION: The patient is immunocompromised, status post chemotherapy. She has extensive cellulitis of the right breast requiring intravenous antibiotics at this time. We will need to investigate further and see if we can consult patient's breast surgeon for consultation. No evidence of abscess at this time , but consider ultrasound if patient develops any changes on exam or in symptoms. Given patient's significant decline in immune defense, anticipate she will require more than 2 midnight stay and has been admitted to inpatient status on the oncology floor. /[id number]/MODL MTDD
[2017-07-19] MEDS: PROMETHAZINE HCL 25 MG/ML INJ IVP PRN ×2 (11:20→18:45)
[2017-07-19] MEDS ORDERED: NS 1,000 ML IV ONE ×2 (11:56→17:03)
[2017-07-19] MEDS ORDERED: NS 2,500 ML IV ONE (12:13)
--- NOTE | 2017-07-19 12:14 | HOSPPROG ---
Hospitalist Progress Note Assessment/Plan: #Severe sepsis: due to breast cellulitis. Stat lactate, aggressive IVFs. CXR and UA negative (personally reviewed). -mentating, good UOP, negative lactate. BL SBP 95/110 per review prior records #Nonpurulent right breast cellulitis: area of induration, check US. Cont IV Ancef. Awaiting call back from Dr. Paniagua with Plastics -radical mastectomy, tissue area operations director reconstruction #Hypotension: multifactorial with infection and anemia. IVFs, blood transfusion. #Breast cancer: recently diagnosed. Currently on chemo/ s/p lumpectomy, mastectomy with implant spacer. Not neutropenic #Leukopenia/anemia: H/H now < 7. Transfusing 2 units. #Hypothyroidism: cont home meds #Fever: due to cellulitis. Blood cultures pending. IV Ancef #Hypovolemic hyponatremia: due to dehydration. Resolved with IVFs #Diet: regular #DVT ppx: lovenox Critical care time spent: 60 min bedside examining patient, reviewing records, labs and d/w surgery and plastics # Subjective: feverish, tired, lightheaded Objective: Vital Signs Temp Pulse Resp BP Pulse Ox 38.1 C 90 18 84/52 L 93 07/19/17 12:00 07/19/17 12:00 07/19/17 12:00 07/19/17 12:00 07/19/17 12:00 Laboratory Results 07/19/17 04:57 07/19/17 04:57 07/18/17 07/19/17 07/20/17 05:59 05:59 05:59 Intake Total 1075 Output Total 500 Balance 575 - Physical Exam Constitutional: chronically ill appearing Eyes: PERRL Ears, Nose, Mouth, Throat: moist mucous membranes, hearing normal Cardiovascular: regular rate and rhythym Respiratory: no respiratory distress, no rales or rhonchi, No inspiratory crackles, No rhonchi Gastrointestinal: normoactive bowel sounds, soft, non-tender abdomen Genitourinary: no bladder fullness Skin: other (right breast with erythema, warmth. Surigcal incision healed well, no purulence. Small area of induration on chest above the breast) Musculoskeletal: full muscle strength Neurologic: AAOx3 Psychiatric: interacting appropriately ICD10 Worksheet Patient Problems: Problems Problem Status Onset Cellulitis of right breast Acute Breast cancer Acute
[2017-07-19] MEDS: ACETAMINOPHEN 325 MG TAB PO PRN ×2 (12:23→19:38)
--- NOTE | 2017-07-19 14:26 | PDMN ---
Medical Necessity Medical necessity: est los >2 mn for R breast cellulitis & fever, immunocompromised s/p chemotherapy, lumpectomy/implant spacer, requiring IV abx . Comorbidities include breast cancer, hypotension, anxiety & depression; per H& P & order 07/18/17
[2017-07-19] MEDS ORDERED: ALTEPLASE 2 MG VIAL IVP PRN (15:41)
[2017-07-19 15:42] LABS: HEMATOCRIT 19.3 % (38.0-47.0)
[2017-07-19 15:49] LABS: HEMOGLOBIN 6.4 g/dL (12.6-16.3)
--- NOTE | 2017-07-19 16:16 | SOAPPROG ---
SOAP Progress Note Assessment/Plan: Assessment: 1.) Cellulitis R breast now 3 months following R Mastectomy with placement of spacer implant, showing early response to Cefazolin therapy. 2.) Anemia related to Myelosuppression- more pronounced than expected, in need of transfusion support as d/w Dr. Arana today. 3.) R Breast Cancer, T3 8 cm primary N1 disease ( [facility] system not accessible at this time as to full disease staging and pathology characteristics). She has completed her DD AC and now is on her first of 12 weekly Paclitaxel - complicated by R breast cellulitis. 4.) Depression 5.) Hypothyroidism 6.) Hx. of Left Pneumothorax from placement of first Left sided Mediport, resolved. Plan: 1.) Agree with IV Cefazolin and R chest wall/breas U/S to evaluate for potential abscess formation. 2.) Transfuse 2 U PRBCs 3.) IVF/bedrest 4.) Follow VS + symptoms + Labs 5.) Continue daily meds. 6.) Will likely need regimen of home antibiotics, perhaps extended. 7.) Our service will follow. 07/19/17 16:22 Subjective: This is a 61 year old WF with a T3N1 R breast Carcinoma, Dx 12/28, undergoing R MRM with spacer implant who has received adjuvant chemotherapy with dose dense AC x 4, followed by 14 day break, followed by first of 12 weeks of weekly Paclitaxel on 07/12/17. She developed warmth in the R breast a few days ago and then noted a fever of 102 at home yesterday evening. She has not had any healing or wound issues with her R breast incision since surgery and has not had complications beyond myelosuppression thus far. This is her first hospitalization on Tx. No other localizing sx. 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 Since ER admission, she notes improvement in her warmth and fullness in the R breast area. No chills, or rigors. No recent infections. Objective: Pleasant middle aged WF in NAD, seen with her at the bedside. She is alert, conversant, coherent and in NAD. Temp 38.1 BP 83/53, Pulse 90, R 18 HEENT- alopecia (+), anicteric, no oral lesions Neck- supple, skin intact Chest- clear CVS- RSR, no extra HS, normal S1, S2. Mediport Left - NT R breast area with diffuse erythema, and tenderness to palpation. No distinct mass or abscess present on exam. Spacer is NT to palpation. Erythema extends toward R axilla. ABD- soft, NT, no mass or HSM EXT- warm, well perfused, no LE edema. Pulses strong/equal. Labs: Hgb 6.4, WBC 6.42 with ANC of 4.74, PLT 272, BUN/CR 12/0.8, Glu 90, K+ 4.4 Na+ 137 Blood Cx- NGSF. Vital Signs Temp Pulse Resp BP Pulse Ox 38.1 C 90 18 85/53 L 93 07/19/17 12:00 07/19/17 12:00 07/19/17 12:00 07/19/17 14:51 07/19/17 12:00 Laboratory Results 07/19/17 15:35 07/19/17 04:57 07/18/17 07/19/17 07/20/17 05:59 05:59 05:59 Intake Total 1075 Output Total 500 Balance 575 ICD10 Worksheet Patient Problems: Problems Problem Status Onset Cellulitis of right breast Acute Breast cancer Acute
[2017-07-19] MEDS ORDERED: NS 1,000 ML IV SCH (17:15)
[2017-07-19] MEDS: diphenhydrAMINE 25 MG CAP PO PRN (19:38)
[2017-07-19] MEDS: LORazepam 0.5 MG TAB PO PRN (22:08)
[2017-07-20] MEDS: LEVOTHYROXINE 50 MCG TAB PO SCH (04:48)
[2017-07-20 05:18] LABS: % IMMATURE GRANULYOCYTES 0.4 % (0.0-1.1); ABSOLUTE IMMATURE GRANULOCYTES 0.03 10^3/uL (0.00-0.10); ADD DIFF? NO; ADD MORPH? NO; ADD SCAN? NO; ATYPICAL LYMPHOCYTE FLAG 0 (0-99); FRAGMENT RBC FLAG 50 (0-99); HEMATOCRIT 25.7 % (38.0-47.0); HEMOGLOBIN 8.7 g/dL (12.6-16.3); LEFT SHIFT FLG 10 (0-99); LIPEMIA HEMOLYSIS FLAG 90 (0-99); MEAN CELL HEMOGLOBIN CONCENTR. 33.9 g/dL (32.4-36.7); MEAN CELL VOLUME 88.6 fL (81.5-99.8); MEAN PLATELET VOLUME 9.7 fL (8.7-11.7); PLATELET CLUMPS FLAG 20 (0-99); PLATELET COUNT 263 10^3/uL (150-400); RED CELL DISTRIBUTION WIDTH 19.7 % (11.5-15.2)
[2017-07-20 05:32] LABS: ANION GAP 9 mEq/L (8-16); CALCIUM 7.9 mg/dL (8.5-10.4); CARBON DIOXIDE 18 mEq/l (22-31); CHLORIDE 108 mEq/L (97-110); CREATININE 0.7 mg/dL (0.6-1.0); GLOMERULAR FILTRATION RATE > 60; GLUCOSE 88 mg/dL (70-100); POTASSIUM 3.6 mEq/L (3.5-5.2); SODIUM 135 mEq/L (134-144)
--- NOTE | 2017-07-20 08:40 | HOSPPROG ---
Hospitalist Progress Note Assessment/Plan: #Severe sepsis: resolved. Due to breast absces/cellulitis. -s/p spacer removal today (cloudy fluid noted) by plastics. Await cultures. Cont IV Ancef. Dr. Koch will consult. PICC in place #Nonpurulent right breast abscess: s/p radical mastectomy, tissue flue cleaner reconstruction. Plan as above #Hypotension: resolved with IVFs, blood #Breast cancer: recently diagnosed. Currently on chemo/ s/p lumpectomy, mastectomy with implant spacer. Not neutropenic #Leukopenia/anemia: improved with 2 units. Repeat CBC in morning #Hypothyroidism: cont home meds #Fever: due to cellulitis. Blood cultures pending. IV Ancef #Hypovolemic hyponatremia: resolved with IVFs #Diet: regular #DVT ppx: lovenox #Disp: cont inpt admission. Awaiting cxs, IV abx Subjective: ate lunch, walked. Feeling stronger Objective: Vital Signs Temp Pulse Resp BP Pulse Ox 36.7 C 92 16 107/58 L 95 07/20/17 04:44 07/20/17 04:44 07/20/17 04:44 07/20/17 04:44 07/20/17 04:44 Laboratory Results 07/20/17 04:35 07/20/17 04:35 07/19/17 07/20/17 07/21/17 05:59 05:59 05:59 Intake Total 1075 3625 Output Total 500 350 Balance 575 3275 - Physical Exam Constitutional: no apparent distress Eyes: PERRL Ears, Nose, Mouth, Throat: moist mucous membranes Cardiovascular: regular rate and rhythym, no murmur, rub, or gallop Respiratory: no respiratory distress, no rales or rhonchi Gastrointestinal: normoactive bowel sounds, soft, non-tender abdomen, levy's sign Skin: warm Musculoskeletal: other (right breast surgical site dressed, CDI. Drain in place. Persistent swelling right upper chest) Neurologic: AAOx3, CN II-XII Intact Psychiatric: interacting appropriately ICD10 Worksheet Patient Problems: Problems Problem Status Onset Cellulitis of right breast Acute Breast cancer Acute
[2017-07-20] MEDS ORDERED: BACITRACIN ZINC 14.2 GM OINTTUBE TP ONE (10:03)
[2017-07-20] MEDS ORDERED: GENTAMICIN SULFATE 80 MG/2 ML VIAL ONE (10:04)
[2017-07-20] MEDS ORDERED: BACITRACIN 50,000 UNITS/10 ML SYR IRR ONE (10:04)
[2017-07-20] MEDS ORDERED: AVITENE POWDER 1 GM JAR TP ONE (10:04)
[2017-07-20] MEDS ORDERED: ceFAZolin 1 GM/5 ML SYR ONE (10:04)
[2017-07-20] MEDS ORDERED: BUPIVACAINE 0.25% 30 ML SDV ONE (10:04)
[2017-07-20] MEDS ORDERED: MIDAZOLAM 2 MG/2 ML VIAL ONE (10:24)
[2017-07-20] MEDS ORDERED: MIDAZOLAM 2 MG/2 ML VIAL IVP ONE (10:24)
--- NOTE | 2017-07-20 10:28 | PDANEPAE ---
ANE Past Medical History - Cardiovascular History Hx Hypertension: No Hx Arrhythmias: No Hx Chest Pain: No Hx Coronary Artery / Peripheral Vascular Disease: No Hx CHF / Valvular Disease: No Hx Palpitations: No - Pulmonary History Hx COPD: No Hx Asthma/Reactive Airway Disease: No Hx Recent Upper Respiratory Infection: No Hx Oxygen in Use at Home: No Hx Sleep Apnea: No Sleep Apnea Screening Result - Last Documented: Negative Pulmonary History Comment: PROLONGED COUGH 02/10/17 TREATED WITH ANTIBIOTIC - Neurologic History Hx Cerebrovascular Accident: No Hx Seizures: No Hx Dementia: No - Endocrine History Hx Diabetes: No Hypothyroid: Yes Hyperthyroid: No Obesity: no Endocrine History Comment: HYPOTHYROID - Renal History Hx Renal Disorders: No - Liver History Hx Hepatic Disorders: No - Neurological & Psychiatric Hx Hx Neurological and Psychiatric Disorders: Yes Neurological / Psychiatric History Comment: MAJOR DEPRESSIVE DISORDER. ANXIETY - Cancer History Hx Cancer: Yes Cancer History Comment: BREAST - Congenital Disorder History Hx Congenital Disorders: No - GI History GERD: mild Hx Gastrointestinal Disorders: No - Other Health History Other Health History: CHRONIC HERPES - Chronic Pain History Chronic Pain: No - Surgical History Prior Surgeries: RT LUMPECTOMY 02/2017. APPY/LESLYE. RT ANKLE RECONSTRUCTION ANE Review of Systems Review of Systems: - Exercise capacity Exercise capacity: limited by disability METS (RN): 3 METS ANE Patient History - Allergies Allergies/Adverse Reactions: soy Allergy (Severe, Verified 07/19/17 09:24) Sulfa (Sulfonamide Antibiotics) Allergy (Verified 07/18/17 19:59) Rash - Home Medications Home Medications: Bupropion HCl [Wellbutrin Xl] 300 mg PO DAILY 04/02/17 [Last Taken 07/18/17] Escitalopram Oxalate [Lexapro] 20 mg PO DAILY 04/02/17 [Last Taken 07/18/17] Liothyronine Sodium [Cytomel 25 mcg (*)] 12.5 mcg PO DAILY 04/02/17 [Last Taken 07/18/17] Multivitamins [Multivitamin (*)] 1 each PO DAILY 04/02/17 [Last Taken 04/12/17] Acyclovir [Zovirax 400 mg (*)] 400 mg PO DAILY 07/18/17 [Last Taken 07/18/17] LORazepam [Lorazepam] 0.5 mg PO TID PRN 07/18/17 [Last Taken 07/17/17] Levothyroxine [Synthroid 50 mcg (*)] 50 mcg PO DAILY06 07/18/17 [Last Taken 02/27] Nystatin 100,000 unit PO QID PRN 07/18/17 [Last Taken 07/18/17] Ondansetron [Ondansetron Odt] 8 mg PO Q6 PRN 07/18/17 [Last Taken 07/17/17] Prochlorperazine Maleate [Compazine 10mg (*)] 10 mg PO TID PRN 07/18/17 [Last Taken 07/17/17] - NPO status NPO Since - Liquids (Date): 07/19/17 NPO Since - Liquids (Time): 00:00 NPO Since - Solids (Date): 07/19/17 NPO Since - Solids (Time): 00:00 - Anes Hx Anes Hx: no prior problems - Smoking Hx Smoking Status: Never smoked - Family Anes Hx Family Anes Hx: neg - N/A ANE Labs/Vital Signs - Labs Result Diagrams: 07/20/17 04:35 07/20/17 04:35 - Vital Signs Blood Pressure: 96/57 Heart Rate: 91 Respiratory Rate: 16 O2 Sat (%): 94 Height: 172.8 cm Weight: 83.5 kg ANE Physical Exam - Airway Neck exam: FROM Mouth exam: normal dental/mouth exam ANE Anesthesia Plan Anesthesia Plan: GA w LMA Total IV Anesthesia: No
[2017-07-20] MEDS ORDERED: fentaNYL 100 MCG/2 ML INJ ONE (10:34)
[2017-07-20] MEDS ORDERED: PROPOFOL 200 MG/20 ML VIAL ONE (10:34)
[2017-07-20] MEDS ORDERED: RANITIDINE 50 MG/2 ML VIAL ONE (10:35)
[2017-07-20] MEDS ORDERED: ONDANSETRON 4 MG/2 ML VIAL ONE (10:35)
[2017-07-20] MEDS ORDERED: DEXAMETHASONE 4 MG/ML VIAL ONE (10:35)
[2017-07-20] MEDS ORDERED: LIDOCAINE 2% 5 ML SDV ONE (10:36)
[2017-07-20] MEDS ORDERED: PHENYLEPHRINE HCL 100 MCG/ML SYR ONE (10:45)
[2017-07-20] MEDS ORDERED: CEFAZOLIN 2 GM/DEXTROSE/100 ML BAG IV ONE (11:00)
[2017-07-20] MEDS ORDERED: OXYCODONE/APAP 5/325 TAB PO PRN (11:37)
[2017-07-20] MEDS ORDERED: ACETAMINOPHEN 500 MG TAB PO PRN (11:37)
[2017-07-20] MEDS ORDERED: ONDANSETRON 4 MG/2 ML VIAL IVP PRN (11:37)
[2017-07-20] MEDS ORDERED: PROMETHAZINE HCL 25 MG/ML INJ IVP PRN (11:37)
[2017-07-20] MEDS ORDERED: HYDROCODONE/APAP 5/325 TAB PO PRN (11:37)
[2017-07-20] MEDS ORDERED: MEPERIDINE 25 MG/ML SYR IVP PRN (11:37)
[2017-07-20] MEDS ORDERED: NALOXONE HCL 0.4 MG/ML INJ IVP PRN (11:37)
[2017-07-20] MEDS ORDERED: fentaNYL 100 MCG/2 ML INJ IVP PRN (11:37)
[2017-07-20] MEDS ORDERED: LR 500 ML IV PRN (11:37)
--- NOTE | 2017-07-20 11:49 | SOAPPROG ---
SOAP Progress Note Assessment/Plan: Assessment: 1. T3 (8 cm) N2a (7) M0 Stage IIIA IDC +/+/- Ki67 1%: on dose dense AC followed by weekly T. Just had week 1 of taxol. Came in with cellulitis. Counts ok except for HgB. Had TXN now better. 2. Cellulitis of the chest wall: Tissue technical artist removed. Afebrile. BC neg. swab pending. On Ancef. Plan:IV abx 07/20/17 11:46 07/20/17 11:50 07/20/17 11:50 07/20/17 11:51 Subjective: Duyen is a 61 yo F with stage IIIA breast cancer with implant infection. Doing better. Objective: Vital Signs Temp Pulse Resp BP Pulse Ox 99.3 C H 91 17 86/62 L 91 L 07/20/17 05:44 07/20/17 10:27 07/20/17 11:36 07/20/17 11:41 07/20/17 11:41 Laboratory Results 07/20/17 04:35 07/20/17 04:35 07/19/17 07/20/17 07/21/17 05:59 05:59 05:59 Intake Total 1075 7207 Output Total 500 350 Balance 573 5224 ICD10 Worksheet Patient Problems: Problems Problem Status Onset Cellulitis of right breast Acute Breast cancer Acute
--- NOTE | 2017-07-20 13:40 | GOP ---
[f rep st] OPERATIVE REPORT DATE OF OPERATION: 07/20/2017 SURGEON: Lencho Earl MD ANESTHESIA: General. ANESTHESIOLOGIST: Rachell Garner DO PREOPERATIVE DIAGNOSIS: Absence right breast following mastectomy for breast cancer with infection o f tissue head of housekeeping breast reconstruction. POSTOPERATIVE DIAGNOSIS: Absence right breast following mastectomy for breast cancer with infection of tissue head of housekeeping breast reconstruction. PROCEDURE PERFORMED: Incision, drainage, irrigation and removal of tissue head of housekeeping right breast amanda nstruction. FINDINGS: INDICATIONS: The patient is a 61-year-old female approximately 3 months out from right mastectomy wi th immediate tissue head of housekeeping reconstruction with several day history of sepsis and cellulitis from he r right breast reconstruction. She was admitted for I and D and removal of the tissue head of housekeeping. Aft er preoperative consultation and obtaining informed consent, the operative procedure was scheduled. The patient understood that not removing the tissue head of housekeeping might interfere with her ability to cont inue her chemotherapy on the appropriate schedule and she voiced understanding throughout the discuss ion. DESCRIPTION OF PROCEDURE: The patient was satisfactorily anesthetized under general anesthesia in th e supine position and right chest was then prepped and draped in usual sterile fashion. The central incision was opened sharply, dissection carried down to the periprosthetic space which had significan t cloudy infected fluid. All the fluid was aspirated and cultured. The tissue head of housekeeping was punctured , fluid was removed, and tissue head of housekeeping removed from the pocket. Bimanual palpation revealed no ab dence of loculations. The pocket was copiously irrigated with triple antibiotic solution. A 15-Fren ch drain was placed. After hemostasis of wound edges, the incision was closed with interrupted 3-0 M onocryl sutures in the edge of the AlloDerm. AlloDerm was adherent throughout. A compressive dressi ng was applied. The patient tolerated the procedure well and was awakened in the operating room and taken to the recovery room in apparent satisfactory condition. SURGEON: Lencho Earl MD /[id number]/MODL
[2017-07-20] MEDS: NS 1,000 ML IV SCH (15:07)
--- NOTE | 2017-07-20 15:34 | ASMTCMCOM ---
CM Note CM Note Notes: Pt with hx of breast ca admitted for rt breast cellulitis. Pt had PICC line placed and is on IV ancef. Her tissue drum cleaner was surgucaly removed. If pt needs IV ABX at DC, her Medicaid insurance should cover at 100%. C/M to follow. Date Signed: 07/20/2017 03:34 PM Electronically Signed By:Uma Keita LCSW
[2017-07-20] MEDS: ESCITALOPRAM OXALATE 10 MG TAB PO SCH (16:33)
[2017-07-20] MEDS: buPROPion XL 150 MG TAB PO SCH (16:34)
[2017-07-20] MEDS: MULTIVITAMINS 1 EACH TAB PO SCH (16:34)
[2017-07-20] MEDS: ACYCLOVIR 400 MG TAB PO SCH (16:35)
[2017-07-20] MEDS: LIOTHYRONINE SODIUM 25 MCG TAB PO SCH (16:36)
[2017-07-20] MEDS: NYSTATIN SUSP 500000 UNIT/5 ML UDCUP PO PRN (20:54)
[2017-07-20] MEDS: LORazepam 0.5 MG TAB PO PRN (20:55)
[2017-07-21] MEDS: PROMETHAZINE HCL 25 MG/ML INJ IVP PRN (00:25)
[2017-07-21] MEDS: LEVOTHYROXINE 50 MCG TAB PO SCH (04:25)
[2017-07-21 04:31] LABS: HEMATOCRIT 24.2 % (38.0-47.0); HEMOGLOBIN 8.2 g/dL (12.6-16.3); MEAN CELL HEMOGLOBIN 30.1 pg (27.9-34.1); MEAN CELL HEMOGLOBIN CONCENTR. 33.9 g/dL (32.4-36.7); RED BLOOD CELL COUNT 2.72 10^6/uL (4.18-5.33); RED CELL DISTRIBUTION WIDTH 19.9 % (11.5-15.2)
[2017-07-21 04:56] LABS: ANION GAP 8 mEq/L (8-16); CALCIUM 8.6 mg/dL (8.5-10.4); CARBON DIOXIDE 21 mEq/l (22-31); CHLORIDE 110 mEq/L (97-110); CREATININE 0.7 mg/dL (0.6-1.0); GLOMERULAR FILTRATION RATE > 60; GLUCOSE 106 mg/dL (70-100); POTASSIUM 3.9 mEq/L (3.5-5.2); SODIUM 139 mEq/L (134-144)
[2017-07-21] MEDS: MULTIVITAMINS 1 EACH TAB PO SCH (11:27)
[2017-07-21] MEDS: ACYCLOVIR 400 MG TAB PO SCH (11:27)
[2017-07-21] MEDS: buPROPion XL 150 MG TAB PO SCH (11:28)
[2017-07-21] MEDS: ESCITALOPRAM OXALATE 10 MG TAB PO SCH (11:28)
[2017-07-21] MEDS: LIOTHYRONINE SODIUM 25 MCG TAB PO SCH (11:29)
--- NOTE | 2017-07-21 12:59 | SOAPPROG ---
SOAP Progress Note Assessment/Plan: Assessment: 1. T3 (8 cm) N2a (7) M0 Stage IIIA IDC +/+/- Ki67 1%: on dose dense AC followed by weekly T. Just had week 1 of taxol. Came in with cellulitis and implant infection. Counts ok except for HgB. Had TXN now better. 2. Cellulitis of the chest wall: Tissue clinical research tech removed. Afebrile. BC neg. swab NG. On Ancef. drain in place. She will need emperical therapy Plan:IV abx 07/20/17 11:46 07/20/17 11:50 07/20/17 11:50 07/20/17 11:51 07/21/17 12:57 07/21/17 12:58 Subjective: Duyen is a 61 yo F with stage IIIA breast cancer with implant infection. Doing better today. implant removed. culture pending Objective: Vital Signs Temp Pulse Resp BP Pulse Ox 36.8 C 74 16 113/71 94 07/21/17 12:00 07/21/17 12:00 07/21/17 12:00 07/21/17 12:00 07/21/17 12:00 Microbiology 07/20/17 11:02 Gram Stain - Final Breast - Eswab Laboratory Results 07/21/17 04:20 07/21/17 04:20 07/20/17 07/21/17 07/22/17 05:59 05:59 05:59 Intake Total 4572 1930 Output Total 350 1180 925 Balance 3275 2285 -92 ICD10 Worksheet Patient Problems: Problems Problem Status Onset Breast cancer Acute Cellulitis of right breast Acute
--- NOTE | 2017-07-21 13:00 | HOSPPROG ---
Hospitalist Progress Note Assessment/Plan: #Severe sepsis: resolved. -s/p spacer removal 07/20.(cloudy fluid noted) by plastics. Await cultures. Cont IV Ancef. Dr. Koch will consult. PICC in place #Nonpurulent right breast abscess: s/p radical mastectomy, tissue historic interpreter reconstruction. Plan as above #Hypotension: resolved with IVFs, blood #Breast cancer: recently diagnosed. Currently on chemo/ s/p lumpectomy, mastectomy with implant spacer. Not neutropenic #Leukopenia/anemia: H/H remains stable after 2 units #Hypothyroidism: cont home meds #Fever: due to cellulitis. Blood cultures pending. IV Ancef #Hypovolemic hyponatremia: resolved with IVFs #Diet: regular #DVT ppx: lovenox #Disp: cont inpt admission. Awaiting cxs, IV abx Subjective: eating well, no fevers. Objective: Vital Signs Temp Pulse Resp BP Pulse Ox 36.8 C 74 16 113/71 94 07/21/17 12:00 07/21/17 12:00 07/21/17 12:00 07/21/17 12:00 07/21/17 12:00 Microbiology 07/20/17 11:02 Gram Stain - Final Breast - Eswab Laboratory Results 07/21/17 04:20 07/21/17 04:20 07/20/17 07/21/17 07/22/17 05:59 05:59 05:59 Intake Total 3625 2925 Output Total 350 1180 925 Balance 3275 1745 -925 - Physical Exam Constitutional: no apparent distress, other (smiling, ) Eyes: PERRL Ears, Nose, Mouth, Throat: moist mucous membranes, hearing normal Cardiovascular: regular rate and rhythym, no murmur, rub, or gallop Respiratory: no respiratory distress, no rales or rhonchi Gastrointestinal: normoactive bowel sounds, soft, non-tender abdomen Genitourinary: no bladder fullness Skin: warm Musculoskeletal: full muscle strength, other (right upper chest with swelling, erythema over it and breast nearly resolved. Surgical site CDI, drain in place) Neurologic: AAOx3 Psychiatric: interacting appropriately ICD10 Worksheet Patient Problems: Problems Problem Status Onset Cellulitis of right breast Acute Breast cancer Acute
--- NOTE | 2017-07-21 18:05 | GCON ---
[f rep st] CONSULTATION INFECTIOUS DISEASE CONSULTATION REFERRING PHYSICIAN: Lluvia Arana MD REASON FOR CONSULTATION: Right breast infection. HISTORY OF PRESENT ILLNESS: The patient is a 61-year-old female with a history of mastectomy and titi ast cancer on the right side, who had her mastectomy and tissue financial associate placed at the end of March. The patient had been receiving some chemotherapy, but noted beginning 2 days prior to admission that she began having fever, fatigue, and cough. She also noticed increased warmth and swelling on the la teral aspect of the right breast. The patient was seen in the emergency room on 07/18/2017 and admit yael. Breast ultrasound on 07/19/2017 showed a complex fluid collection in the right upper chest. Sh walter was taken back to surgery on 07/20/[address] Earl, who noted cloudy infected appearing fluid ar ound the tissue financial associate. This tissue financial associate was removed. The patient was started on empiric cefa zolin therapy. On admission, the patient had a fever to 38.7. Following surgery, she has been afebr ile. She did not ever have a leukocytosis. Blood cultures from 07/18 are pending. Operative cultur e from 07/20 is also pending. PAST MEDICAL HISTORY: 1. Breast cancer. 2. Hypothyroidism. 3. Anxiety. 4. Depression. PAST SURGICAL HISTORY: 1. Status post mastectomy. 2. Status post ankle ORIF. 3. Status post cholecystectomy. MEDICATIONS: Antibiotics: Cefazolin. ALLERGIES: Sulfa and soy. SOCIAL HISTORY: The patient is . She has no significant tobacco, alcohol or drug history. FAMILY HISTORY: Reviewed, noncontributory. REVIEW OF SYSTEMS: Other than that detailed above in the history of present illness, comprehensive 1 0-system review is negative. PHYSICAL EXAMINATION: VITAL SIGNS: Temperature maximum is 37.0, temperature current is 36.6, heart rate is 83, respiratory rate is 18, blood pressure is 118/71. GENERAL: The patient is a well-formed , well-nourished female in no acute distress. She is not toxic in appearance. She is alert and orie nted x3. She has a pleasant demeanor. HEENT: Normocephalic for age. Atraumatic. No scleral icter us. No oral lesion or drainage from the nares. Eyes, lids, and conjunctivae are within normal limit s. Pupils are equal and round bilaterally. NECK: Supple. No meningismus. LUNGS: Clear to auscul tation bilaterally with good effort. HEART: Regular rate and rhythm. No significant peripheral jennie ma. SKIN: Warm and dry to the touch. The patient has postoperative dressings along the lateral asp ect of the right breast. She has IVETTE drain with serosanguineous discharge collecting. No significant spreading erythema noted. MUSCULOSKELETAL: No muscle belly tenderness is noted. No joint line eff usion or arthritis seen. NEURO: Cranial nerves 2-12 seem to be intact. Peripheral sensation seems intact in extremities. LABORATORY DATA: The patient has a CBC dated 07/21/2017, shows a white blood cell count of 5.4, hemo globin of 8.2, hematocrit 24.2, platelet count of 274. Serum chemistries on 07/21/2017 are all withi n normal limits. Creatinine 0.7. MICROBIOLOGIC DATA: The patient has blood cultures dated 07/18/2017 which are no growth to date. Th e patient also has an operative swab dated 07/20/2017, which Gram stain is negative for organisms, an d culture is pending. ASSESSMENT: Probable right breast infection of the artificial tissue financial associate. The patient has had that financial associate removed. Empiric cefazolin is reasonable. We will continue this treatment, and follow up on culture data. I expect the patient will likely require 2-4 weeks of treatment post surgery. PLAN: 1. Continue IV Ancef. 2. Follow clinical course, as well as culture data. /[id number]/MODL
[2017-07-21] MEDS: LORazepam 0.5 MG TAB PO PRN (23:59)
[2017-07-21] MEDS: diphenhydrAMINE 25 MG CAP PO PRN (23:59)
[2017-07-22] MEDS: LEVOTHYROXINE 50 MCG TAB PO SCH (04:53)
[2017-07-22 05:10] LABS: % IMMATURE GRANULYOCYTES 0.4 % (0.0-1.1); ABSOLUTE IMMATURE GRANULOCYTES 0.02 10^3/uL (0.00-0.10); ADD DIFF? NO; ADD MORPH? YES; ADD SCAN? NO; ATYPICAL LYMPHOCYTE FLAG 0 (0-99); FRAGMENT RBC FLAG 10 (0-99); HEMATOCRIT 24.5 % (38.0-47.0); HEMOGLOBIN 8.5 g/dL (12.6-16.3); LEFT SHIFT FLG 0 (0-99); LIPEMIA HEMOLYSIS FLAG 90 (0-99); MEAN CELL HEMOGLOBIN 30.7 pg (27.9-34.1); MEAN CELL HEMOGLOBIN CONCENTR. 34.7 g/dL (32.4-36.7); MEAN CELL VOLUME 88.4 fL (81.5-99.8); MEAN PLATELET VOLUME 9.4 fL (8.7-11.7); PLATELET CLUMPS FLAG 10 (0-99); PLATELET COUNT 280 10^3/uL (150-400); RED BLOOD CELL COUNT 2.77 10^6/uL (4.18-5.33)
[2017-07-22 05:11] LABS: RED CELL DISTRIBUTION WIDTH 20.3 % (11.5-15.2)
[2017-07-22 06:00] LABS: PLATELET ESTIMATE ADEQUATE (ADEQ)
[2017-07-22 06:01] LABS: MACROCYTES 1+; MICROCYTES 1+
[2017-07-22 06:03] LABS: KERATOCYTES 1+
--- NOTE | 2017-07-22 07:48 | SOAPPROG ---
SOAP Progress Note Assessment/Plan: Assessment: 1. T3 (8 cm) N2a (7) M0 Stage IIIA IDC +/+/- Ki67 1%: on dose dense AC followed by weekly T. Just had week 1 of taxol. Came in with cellulitis and implant infection. Counts ok except for HgB. Had TXN now better. WBC is normal. 2. Cellulitis of the chest wall: Tissue training professional removed. Afebrile. BC neg. swab NG. On Ancef. drain in place. She will need empirical therapy Plan:IV abx and drainage. Probably safe for discharge. 07/20/17 11:46 07/20/17 11:50 07/20/17 11:50 07/20/17 11:51 07/21/17 12:57 07/21/17 12:58 07/22/17 07:54 07/22/17 07:56 Subjective: Duyen is a 61 yo F with stage IIIA breast cancer with implant infection. Doing better today. implant removed. culture is negative. A fair amount of drainage in the IVETTE drain. Objective: Vital Signs Temp Pulse Resp BP Pulse Ox 36.9 C 73 14 117/67 96 07/22/17 04:00 07/22/17 04:00 07/22/17 04:00 07/22/17 04:00 07/22/17 04:00 Microbiology 07/20/17 11:02 Gram Stain - Final Breast - Eswab Laboratory Results 07/22/17 04:35 07/21/17 04:20 07/21/17 07/22/17 07/23/17 05:59 05:59 05:59 Intake Total 2925 2250 Output Total 1180 9925 Balance 1745 -[address] Lungs clear. CVW neg. Drain in place. minimal erythema. ICD10 Worksheet Patient Problems: Problems Problem Status Onset Cellulitis of right breast Acute Breast cancer Acute
--- NOTE | 2017-07-22 10:04 | HOSPPROG ---
Hospitalist Progress Note Assessment/Plan: #Severe sepsis: resolved. -s/p spacer removal 07/20.(cloudy fluid noted) by plastics. S. aureus on cultures , awaiting sensitivities. Cont IV Ancef. PICC in place -will need 2-4 wks therapy post-op #Nonpurulent right breast abscess: s/p radical mastectomy, tissue cell assembly pinner reconstruction. Plan as above #Hypotension: resolved with IVFs, blood #Breast cancer: recently diagnosed. Currently on chemo/ s/p lumpectomy, mastectomy with implant spacer. Not neutropenic #Leukopenia/anemia: H/H remains stable after 2 units #Hypothyroidism: cont home meds #Fever: due to cellulitis. Blood cultures pending. IV Ancef #Hypovolemic hyponatremia: resolved with IVFs #Diet: regular #DVT ppx: lovenox #Disp: cont inpt admission. Awaiting cxs, IV abx Subjective: no fever, chills, sweats Objective: Vital Signs Temp Pulse Resp BP Pulse Ox 36.9 C 73 14 117/67 96 07/22/17 04:00 07/22/17 04:00 07/22/17 04:00 07/22/17 04:00 07/22/17 04:00 Microbiology 07/20/17 11:02 Gram Stain - Final Breast - Eswab Laboratory Results 07/22/17 04:35 07/21/17 04:20 07/21/17 07/22/17 07/23/17 05:59 05:59 05:59 Intake Total 2925 2250 Output Total 1180 2675 Balance 1745 -425 - Physical Exam Constitutional: no apparent distress Eyes: PERRL Ears, Nose, Mouth, Throat: moist mucous membranes, hearing normal Cardiovascular: regular rate and rhythym, no murmur, rub, or gallop Respiratory: no respiratory distress, no rales or rhonchi Gastrointestinal: normoactive bowel sounds, soft, non-tender abdomen Genitourinary: no bladder fullness Skin: warm Musculoskeletal: other (right upper chest with swelling and erythema. Surgical incision draining serosang drainage) Neurologic: AAOx3 Psychiatric: interacting appropriately ICD10 Worksheet Patient Problems: Problems Problem Status Onset Cellulitis of right breast Acute Breast cancer Acute
[2017-07-22] MEDS: LIOTHYRONINE SODIUM 25 MCG TAB PO SCH (10:25)
[2017-07-22] MEDS: buPROPion XL 150 MG TAB PO SCH (10:25)
[2017-07-22] MEDS: ESCITALOPRAM OXALATE 10 MG TAB PO SCH (10:26)
[2017-07-22] MEDS: MULTIVITAMINS 1 EACH TAB PO SCH (10:26)
[2017-07-22] MEDS: ACYCLOVIR 400 MG TAB PO SCH (10:26)
--- NOTE | 2017-07-22 15:58 | WOCRNPDOC ---
WOCRN Advanced Assessment Note - Skin Integrity Problem, Advanced Assess Right Breast Dressing Type: Abdominal Pads, Xeroform Dressing Description: Clean/Dry, Not Intact Closure Description: Approximated (90%), Not Approximated (10%) Exudate Amount: None Wound Bed Constitution: Granulation Tissue (80%), Smooth Tissue (20%) Site Measurement - Head-to-Toe Length X Width X Depth (cm): 1x3x1 Skin Integrity Problem Comment: Surgical site that appears mostly healed. Small full thickness opening in the middle of the incision line. Discussed plan with patient. Will use hydrofera blue ready to tuck into opening to lend antimicrobial component and small amount of moisture to tissues. Wound care will check in again next week. Updated Duyen CASTILLO.
--- NOTE | 2017-07-22 16:28 | ASMTCMCOM ---
CM Note CM Note Notes: Reviewed chart and d/w RN and MD. Pt will need to dc home on IV ABX's. D/W pt who is open to learning how to administer at home. Notified Fely at [facility] who came on-site and met w/pt. [facility] can accept pt and [facility] will do nursing- confirmed w/Heather at [facility] that they can accept. ENEDELIA w/f. Date Signed: 07/22/2017 04:27 PM Electronically Signed By:Stacy Ortega, RN
--- NOTE | 2017-07-22 18:26 | PCMIDPN ---
Assessment/Plan: Assessment/Plan: * Right breast infection status post tissue valuation consultant removal: Some residual erythema present over soft tissue. Culture showing growth of Staphylococcus aureus with susceptibility pending. Await susceptibility on Staphylococcus aureus. Plan at least 2 weeks of IV cefazolin if MSSA. Total duration of therapy will be dependent on clinical response. Risks and benefits of cefazolin and PICC line were discussed with patient today. Anticipate discharge home tomorrow once susceptibilities have been performed. 07/22/17 18:24 Subjective: Patient without significant complaints. Objective: Vital Signs Temp Pulse Resp BP Pulse Ox 36.7 C 85 16 131/72 H 97 07/22/17 16:00 07/22/17 16:00 07/22/17 16:00 07/22/17 16:00 07/22/17 16:00 Microbiology 07/20/17 11:02 Gram Stain - Final Breast - Eswab Laboratory Results 07/22/17 04:35 07/21/17 04:20 07/21/17 07/22/17 07/23/17 05:59 05:59 05:59 Intake Total 2925 2250 250 Output Total 1180 2675 1340 Balance 5655 -576 -4666 Cefazolin # 3 Operative culture with rare Staph aureus Blood cultures x2 no growth - Physical Exam General Appearance: alert, no apparent distress EENT: No scleral icterus, No thrush Respiratory: lungs clear, No respiratory distress Cardiac/Chest: regular rate, rhythm Abdomen: non-tender, No distended Skin: other (Right breast with some erythema and warmth superior to incision line; small open area mid incision; IVETTE with serous output, no significant tenderness present; no purulence) ICD10 Worksheet Patient Problems: Problems Problem Status Onset Cellulitis of right breast Acute Breast cancer Acute
[2017-07-22] MEDS: diphenhydrAMINE 25 MG CAP PO PRN (22:30)
[2017-07-22] MEDS: LORazepam 0.5 MG TAB PO PRN (22:30)
[2017-07-23] MEDS: LEVOTHYROXINE 50 MCG TAB PO SCH (04:47)
[2017-07-23 05:09] LABS: ADD DIFF? YES; ADD MORPH? YES; ADD SCAN? NO; ATYPICAL LYMPHOCYTE FLAG 40 (0-99); FRAGMENT RBC FLAG 20 (0-99); HEMOGLOBIN 9.1 g/dL (12.6-16.3); LEFT SHIFT FLG 0 (0-99); LIPEMIA HEMOLYSIS FLAG 80 (0-99); MEAN CELL HEMOGLOBIN 29.9 pg (27.9-34.1); MEAN CELL HEMOGLOBIN CONCENTR. 33.7 g/dL (32.4-36.7); MEAN CELL VOLUME 88.8 fL (81.5-99.8); MEAN PLATELET VOLUME 8.9 fL (8.7-11.7); PLATELET CLUMPS FLAG 0 (0-99); PLATELET COUNT 288 10^3/uL (150-400); RED BLOOD CELL COUNT 3.04 10^6/uL (4.18-5.33)
[2017-07-23 05:11] LABS: RED CELL DISTRIBUTION WIDTH 20.2 % (11.5-15.2)
[2017-07-23 05:47] LABS: ELLIPTOCYTES 1+; PLATELET ESTIMATE ADEQUATE (ADEQ); POLYCHROMASIA 1+
[2017-07-23] MEDS: ESCITALOPRAM OXALATE 10 MG TAB PO SCH (09:14)
[2017-07-23] MEDS: MULTIVITAMINS 1 EACH TAB PO SCH (09:15)
[2017-07-23] MEDS: ACYCLOVIR 400 MG TAB PO SCH (09:15)
[2017-07-23] MEDS: LIOTHYRONINE SODIUM 25 MCG TAB PO SCH (09:15)
[2017-07-23] MEDS: buPROPion XL 150 MG TAB PO SCH (09:17)
--- NOTE | 2017-07-23 09:22 | SOAPPROG ---
SOAP Progress Note Assessment/Plan: Assessment: 1. T3 (8 cm) N2a (7) M0 Stage IIIA IDC +/+/- Ki67 1%: on dose dense AC followed by weekly T. Just had week 1 of taxol. Came in with cellulitis and implant infection. Counts ok except for HgB. Had TXN now better. WBC is normal. 2. Cellulitis of the chest wall: Tissue doula removed. Afebrile. BC neg. swab NG. On Ancef. drain in place. She will need empirical therapy. Per ID: Right breast infection status post tissue doula removal: Some residual erythema present over soft tissue. Culture showing growth of Staphylococcus aureus with susceptibility pending. Await susceptibility on Staphylococcus aureus. Plan at least 2 weeks of IV cefazolin if MSSA. Total duration of therapy will be dependent on clinical response. Risks and benefits of cefazolin and PICC line were discussed with patient today. Anticipate discharge home tomorrow once susceptibilities have been performed. Plan:IV abx and drainage. Probably safe for discharge. Awaiting sensitivities. 07/20/17 11:46 07/20/17 11:50 07/20/17 11:50 07/20/17 11:51 07/21/17 12:57 07/21/17 12:58 07/22/17 07:54 07/22/17 07:56 07/23/17 09:21 Subjective: Duyen is a 61 yo F with stage IIIA breast cancer with implant infection. Doing better today. implant removed. culture is negative. A fair amount of drainage in the IVETTE drain. She is here to decide if cefazolin is the right choice or vanco Objective: Vital Signs Temp Pulse Resp BP Pulse Ox 36.8 C 93 18 138/70 H 95 07/23/17 08:36 07/23/17 08:36 07/23/17 08:36 07/23/17 08:36 07/23/17 08:36 Microbiology 07/20/17 11:02 Gram Stain - Final Breast - Eswab Laboratory Results 07/23/17 04:45 07/21/17 04:20 07/22/17 07/23/17 07/24/17 05:59 05:59 05:59 Intake Total 1712 827 Output Total 0647 1294 Balance -425 -4824 Alert. Doing well ICD10 Worksheet Patient Problems: Problems Problem Status Onset Cellulitis of right breast Acute Breast cancer Acute
--- NOTE | 2017-07-23 11:53 | PCMIDPN ---
Assessment/Plan: Assessment/Plan: 1. 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 -Cultures with Staph aureus. Susceptibilities still pending -Currently on Ancef therapy. - Labs stable -Blood cx ngtd -Once susceptibilites are out, can formally set up IV antibiotics for OP continued therapy. Meds Ancef 1g q8- Subjective: afebrile. she feels better. denies pain or redness involving right breast. drain in place with serous drainage. denies sob, abd pian or diarrhea. Objective: Vital Signs Temp Pulse Resp BP Pulse Ox 36.8 C 93 18 138/70 H 95 07/23/17 08:36 07/23/17 08:36 07/23/17 08:36 07/23/17 08:36 07/23/17 08:36 Microbiology 07/20/17 11:02 Gram Stain - Final Breast - Eswab Laboratory Results 07/23/17 04:45 07/21/17 04:20 07/22/17 07/23/17 07/24/17 05:59 05:59 05:59 Intake Total 2250 550 Output Total 6795 0208 538 Balance -212 -2543 -822 - Physical Exam General Appearance: alert, no apparent distress Respiratory: lungs clear Cardiac/Chest: regular rate, rhythm Extremities: No swelling Abdomen: normal bowel sounds, non-tender, soft, No distended Skin: other (right breast: drain in place. she has some erythema just under where tape from dressing is but she states she had this from before when she got a rash from her chemo. nontender. ), No rash ICD10 Worksheet Patient Problems: Problems Problem Status Onset Cellulitis of right breast Acute Breast cancer Acute
--- NOTE | 2017-07-23 14:10 | HOSPPROG ---
Hospitalist Progress Note Assessment/Plan: DIAGNOSES: #Severe sepsis: resolved #Nonpurulent right breast abscess: s/p radical mastectomy, tissue scrum product owner reconstruction. Plan as above -s/p spacer removal 07/20 -still waiting on staph sensitivies, DC to home w home IV abx once available #Breast cancer: recently diagnosed. Currently on chemo/ s/p lumpectomy, mastectomy with implant spacer. Not neutropenic #Leukopenia/anemia due to cancer and chemotherapy: -H/H remains stable after 2 units #Hypothyroidism: cont home meds #Hypovolemic hyponatremia: resolved with IVFs SUBJECTIVE: no pain, no fever sxs no nausea OBJECTIVE Vitals reviewed: stable without fever Continuity Coordinator, my review: Exam: alert oriented skin warm dry color ok surgical drain with slightly clowdy serous fluid resps not labored heart regular abd soft nondistended nontender, bowel sounds present limbs warm, no edema iv site ok Wound culture: staph but still no abx sensitivities Blood cx's remain neg to date Objective: Vital Signs Temp Pulse Resp BP Pulse Ox 36.8 C 93 18 138/70 H 95 07/23/17 08:36 07/23/17 08:36 07/23/17 08:36 07/23/17 08:36 07/23/17 08:36 Microbiology 07/20/17 11:02 Gram Stain - Final Breast - Eswab Laboratory Results 07/23/17 04:45 07/21/17 04:20 07/22/17 07/23/17 07/24/17 06:59 06:59 06:59 Intake Total 2252 467 Output Total 1896 0347 640 [facility] -425 -2735 -640 ICD10 Worksheet Patient Problems: Problems Problem Status Onset Cellulitis of right breast Acute Breast cancer Acute
[2017-07-23 20:03] VITALS: RESP 18
[2017-07-24] MEDS: LEVOTHYROXINE 50 MCG TAB PO SCH (04:46)
[2017-07-24 04:58] VITALS: PULSE 81; TEMP 98.2
[2017-07-24 05:16] LABS: ADD DIFF? YES; ADD SCAN? NO; ATYPICAL LYMPHOCYTE FLAG 50 (0-99); FRAGMENT RBC FLAG 20 (0-99); HEMOGLOBIN 9.7 g/dL (12.6-16.3); LEFT SHIFT FLG 0 (0-99); LIPEMIA HEMOLYSIS FLAG 80 (0-99); MEAN CELL HEMOGLOBIN 30.5 pg (27.9-34.1); MEAN CELL HEMOGLOBIN CONCENTR. 33.4 g/dL (32.4-36.7); MEAN CELL VOLUME 91.2 fL (81.5-99.8); MEAN PLATELET VOLUME 8.9 fL (8.7-11.7); PLATELET CLUMPS FLAG 0 (0-99); PLATELET COUNT 300 10^3/uL (150-400); RED BLOOD CELL COUNT 3.18 10^6/uL (4.18-5.33)
[2017-07-24 05:25] LABS: ADD MORPH? NO; RED CELL DISTRIBUTION WIDTH 20.4 % (11.5-15.2)
[2017-07-24 05:56] LABS: ELLIPTOCYTES 1+; PLATELET ESTIMATE ADEQUATE (ADEQ); POLYCHROMASIA 1+
--- NOTE | 2017-07-24 07:13 | SOAPPROG ---
SOAP Progress Note Assessment/Plan: Assessment: 1. T3 (8 cm) N2a (7) M0 Stage IIIA IDC +/+/- Ki67 1%: on dose dense AC followed by weekly T. Just had week 1 of taxol. Came in with cellulitis and implant infection. Counts ok except for HgB. Had TXN now better. WBC is normal. 2. Cellulitis of the chest wall: Tissue healthcare administrative assistant removed. Gino stroud Cefazolin sensitive. Should be able to go home on ancef pending ID.Af Plan:IV abx and drainage. Follow with Dr. Ramirez next week to decide when and if to resume adjuvant chemotherapy and update her on her condition. 07/20/17 11:46 07/20/17 11:50 07/20/17 11:50 07/20/17 11:51 07/21/17 12:57 07/21/17 12:58 07/22/17 07:54 07/22/17 07:56 07/23/17 09:21 07/24/17 08:12 Subjective: Duyen is a 61 yo F with stage IIIA breast cancer with implant infection. Doing better today. implant removed. culture is negative. A fair amount of drainage in the IVETTE drain. The patient is doing well. Objective: Vital Signs Temp Pulse Resp BP Pulse Ox 36.8 C 81 18 127/60 H 95 07/24/17 04:00 07/24/17 04:00 07/24/17 04:00 07/24/17 04:00 07/24/17 04:00 Microbiology 07/20/17 11:02 Gram Stain - Final Breast - Eswab Laboratory Results 07/24/17 04:36 07/21/17 04:20 07/23/17 07/24/17 07/25/17 05:59 05:59 05:59 Intake Total 550 350 Output Total 0316 3070 Balance -6696 -[address] ICD10 Worksheet Patient Problems: Problems Problem Status Onset Breast cancer Acute Cellulitis of right breast Acute
[2017-07-24 08:37] VITALS: BP 126/60; O2SAT 93
[2017-07-24] MEDS: ESCITALOPRAM OXALATE 10 MG TAB PO SCH (08:50)
[2017-07-24] MEDS: LIOTHYRONINE SODIUM 25 MCG TAB PO SCH (08:51)
[2017-07-24] MEDS: buPROPion XL 150 MG TAB PO SCH (08:51)
[2017-07-24] MEDS: MULTIVITAMINS 1 EACH TAB PO SCH (08:51)
[2017-07-24] MEDS: ACYCLOVIR 400 MG TAB PO SCH (08:55)
--- NOTE | 2017-07-24 10:18 | PCMIDPN ---
Assessment/Plan: Assessment: Right-sided breast production cook infection. Secondary to MSSA. The patient has been managed on IV Ancef since admission. We will continue this for the regimen 3 times a day once the patient is discharged. Anticipate a 4 week duration. Follow-up in office in 7-10 days. Plan: 1. Continue cefazolin 2 g IV q.8 hours. 2. 4 week duration anticipated. 3. Follow-up [facility] in 7-10 days. 07/24/17 10:15 Subjective: Patient is resting in her hospital bed. She denies any fevers or chills. She denies rash or itching. She denies diarrhea. Objective: Cefazolin # 02/08 Vital Signs Temp Pulse Resp BP Pulse Ox 36.8 C 81 18 126/60 H 93 07/24/17 08:35 07/24/17 08:35 07/24/17 08:35 07/24/17 08:35 07/24/17 08:35 Microbiology 07/20/17 11:02 Gram Stain - Final Breast - Eswab Laboratory Results 07/24/17 04:36 07/21/17 04:20 07/23/17 07/24/17 07/25/17 05:59 05:59 05:59 Intake Total 550 350 Output Total 3285 1540 Balance -1335 -1190 - Physical Exam General Appearance: WD/WN, alert, no apparent distress, non-toxic Respiratory: lungs clear, normal breath sounds, No respiratory distress Cardiac/Chest: regular rate, rhythm, No tachycardia, No systolic murmur Skin: normal color, warm/dry, other (IVETTE drain from the right breast with serous fluid.), No rash Neuro/Psych: alert, normal mood/affect, oriented x 3 ICD10 Worksheet Patient Problems: Problems Problem Status Onset Cellulitis of right breast Acute Breast cancer Acute
--- NOTE | 2017-07-24 10:20 | PDIAF ---
- Diagnosis Diagnosis: Right breast commercial underwriter infection Code Status: Full Code - Medication Management Discharge Medications: Medications to Continue on Transfer Bupropion HCl [Wellbutrin Xl] 300 mg PO DAILY 04/02/17 [Last Taken 07/18/17] Escitalopram Oxalate [Lexapro] 20 mg PO DAILY 04/02/17 [Last Taken 07/18/17] Liothyronine Sodium [Cytomel 25 mcg (*)] 12.5 mcg PO DAILY 04/02/17 [Last Taken 07/18/17] Multivitamins [Multivitamin (*)] 1 each PO DAILY 04/02/17 [Last Taken 04/12/17] Hydrocodone/APAP 5/325 [Vass 5/325 (*)] 1 - 2 tab PO Q4HRS PRN #0 tab 04/13/17 [Last Taken Unknown] Acyclovir [Zovirax 400 mg (*)] 400 mg PO DAILY 07/18/17 [Last Taken 07/18/17] LORazepam [Lorazepam] 0.5 mg PO TID PRN 07/18/17 [Last Taken 07/17/17] Levothyroxine [Synthroid 50 mcg (*)] 50 mcg PO DAILY06 07/18/17 [Last Taken 02/27] Nystatin 100,000 unit PO QID PRN 07/18/17 [Last Taken 07/18/17] Ondansetron [Ondansetron Odt] 8 mg PO Q6 PRN 07/18/17 [Last Taken 07/17/17] Prochlorperazine Maleate [Compazine 10mg (*)] 10 mg PO TID PRN 07/18/17 [Last Taken 07/17/17] Jail Antibiotics: Cefazolin 2 g IV q.8 hours. Jail Antibiotic Stop Date: 08/17/17 Discharge Medications: Refer to the Discharge Home Medication list for PRN reason. PICC Care - Routine: Yes - Orders Services needed: Registered Nurse - Labs/Radiology CBC Date: 07/29/17 (Weekly) CMP Date: 07/29/17 (Weekly) Call or Fax Lab and Imaging Results to: Dr. Jacobo Koch-[phone] - Follow Up Care Current Providers and Referrals: Crystal Isidro MD [Primary Care Provider] - As per Instructions
--- NOTE | 2017-07-24 10:35 | PDDCSUM ---
Discharge Summary Discharge Summary: #Severe sepsis #Nonpurulent right breast abscess: s/p radical mastectomy; s/p spacer removal #Breast cancer on chemo/ s/p lumpectomy, mastectomy #Leukopenia/anemia due to cancer and chemotherapy; transfusion required #Hypothyroidism #Hypovolemic hyponatremia
--- NOTE | 2017-07-24 10:52 | ASMTCMCOM ---
CM Note CM Note Notes: Pt to DC home with IV ABX today. Alerted both [facility] and [facility]. Final orders and meds faxed. [facility] will go to pt's home tonight. Date Signed: 07/24/2017 10:51 AM Electronically Signed By:Uma Keita LCSW
--- NOTE | 2017-07-24 16:06 | ASDISCHSUM ---
Discharge Information Plan Status:IV ABX/Infusion Medically Cleared to Leave: Discharge Date:07/24/2017 03:48 PM D/C Disposition:Home Health Service ADT D/C Disposition:Home Health Service Projected Discharge Date:07/24/2017 11:00 AM Transportation at D/C: Discharge Delay Reason: Follow-Up Date:07/24/2017 11:00 AM Discharge Slot: Final Diagnosis: Placement Information Referral Type:Home Infusion Referral ID:[id number] Provider Name:[facility] Address 1:[facility] [address] Address 2: City:[place] Selection Factors: State:[place] Referral Type:*Home Health Care Services Referral ID:[id number] Provider Name:[facility] [address] Address 2: City:[place] Selection Factors: State:[place] Patient Contact Information Contact Name:BLOSSOM Relationship: Address:[address] [place] [address] Work Phone: City:[facility] Phone: [facility]/Zip Code:[place] [address] Email: Financial Information Financial Class: Primary Plan Desc:MEDICAID HEALTH [facility] IP Primary Plan Number:[id number] Secondary Plan Desc: Secondary Plan Number: Assessment Information [facility] CM Progress Note CM Note CM Note Notes: Pt with hx of breast ca admitted for rt breast cellulitis. Pt had PICC line placed and is on IV ancef. 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 If pt needs IV ABX at DC, her Medicaid insurance should cover at 100%. C/M to follow. Date Signed: 07/20/2017 03:34 PM Electronically Signed By:Uma Keita LCSW BC CM Progress Note CM Note CM Note Notes: Reviewed chart and d/w RN and MD. Pt will need to dc home on IV ABX's. D/W pt who is open to learning how to administer at home. Notified Fely at [facility] who came on-site and met w/pt. [facility] can accept pt and [facility] will do nursing- confirmed w/Heather at [facility] that they can accept. CM w/f. Date Signed: 07/22/2017 04:27 PM Electronically Signed By:Stacy Ortega RN BC CM Progress Note CM Note CM Note Notes: Pt to DC home with IV ABX today. Alerted both [facility] and [facility]. Final orders and meds faxed. [facility] will go to pt's home tonight. Date Signed: 07/24/2017 10:51 AM Electronically Signed By:Uma Keita LCSW Intervention Information
== END 2017-07-24 15:48 | disposition home health service (06) | DRG 907 ==
LOC: F1N 21:46
PROVIDERS: ADMIT Internal Medicine; ATTEND Internal Medicine
PROC: 02HV33Z Insertion of Infusion Device into Superior Vena Cava, Percutaneous Approach (ICD-10-PCS; 2017-07-19)
PROC: 30233N1 Transfusion of Nonautologous Red Blood Cells into Peripheral Vein, Percutaneous Approach (ICD-10-PCS; 2017-07-19)
PROC: 0H9T00Z Drainage of Right Breast with Drainage Device, Open Approach (ICD-10-PCS; principal; 2017-07-20 12:00)
PROC: 0HPT0NZ Removal of Tissue Expander from Right Breast, Open Approach (ICD-10-PCS; principal; 2017-07-20 12:00)
DX: T85.79XA Infection and inflammatory reaction due to other internal prosthetic devices, implants and grafts, initial encounter (principal); A41.01 Sepsis due to Methicillin susceptible Staphylococcus aureus; R65.20 Severe sepsis without septic shock; E87.1 Hypo-osmolality and hyponatremia; N61.1 Abscess of the breast and nipple; E03.9 Hypothyroidism, unspecified; F41.8 Other specified anxiety disorders; C50.919 Malignant neoplasm of unspecified site of unspecified female breast; D64.81 Anemia due to antineoplastic chemotherapy; Y81.2 Prosthetic and other implants, materials and accessory general- and plastic-surgery devices associated with adverse incidents; Z90.11 Acquired absence of right breast and nipple
CPT/HCPCS: 96374; C1751; J0690; J1100; J1650; J2250; J2370; J2405; J2550; J2704; J2780; J3010; P9016

== ENCOUNTER 2017-07-28 19:26 | Emergency (ER) | payer MEDICAID ==
[2017-07-28 19:32] VITALS: RESP 16
--- NOTE | 2017-07-28 19:46 | EDPHY ---
H & P Time Seen by Provider: 07/28/17 19:37 HPI/ROS: CHIEF COMPLAINT: Left shoulder pain HISTORY OF PRESENT ILLNESS: Is patient had a PICC line placed in left arm and 9 days ago for continued therapy for sepsis. About 2 days ago on Saturday she feels like she slipped on her left shoulder wrong and has some soreness on her left shoulder above the clavicle and above the lateral aspect. No skin changes and no chest pain or shortness of breath. Not changed with movement of the arm. No weakness or numbness in the hand. REVIEW OF SYSTEMS: As above PAST MEDICAL HISTORY: Includes breast cancer, depression, asthma, cholecystectomy and ankle surgery. General Appearance: Alert and conversant, cooperative. Patient's left hand has normal radial pulse and normal motor and sensory. Left shoulder external inspection is normal without evidence of swelling or deformity or skin changes. It is not hot to the touch. Normal rotation and abduction and abduction of the left shoulder. She has some tenderness to palpation of the trapezius. Lungs clear to auscultation bilaterally. Cardiac regular rate and rhythm. Emergency Department course/MDM: EKG, ultrasound. More likely musculoskeletal. Does not have signs or symptoms of PE. Normal EKG. 2100: Clot along PICC line in axillary vein per Cherelle on ultrasound. 2112: Discussed with August. Risk benefit alternatives of anticoagulation discussed with the patient and consented. Eliquis; creatnine on 07/21 was 0.7, 10 mg p.o. twice daily for 1 week and will follow up this week with her physician either Dr. Chasity Ramirez or Dr. Koch for further anticoagulation prescription. Smoking Status: Never smoked Constitutional: Initial Vital Signs Temperature (C) 36.9 C 07/28/17 19:29 Heart Rate 89 07/28/17 19:29 Respiratory Rate 16 07/28/17 19:29 Blood Pressure 123/81 H 07/28/17 19:29 O2 Sat (%) 99 07/28/17 19:29 O2 Delivery Mode Room Air Allergies/Adverse Reactions: soy Allergy (Severe, Verified 07/28/17 19:33) Sulfa (Sulfonamide Antibiotics) Allergy (Verified 07/28/17 19:33) Rash Home Medications: Medication Instructions Recorded Bupropion HCl [Wellbutrin Xl] 300 mg PO DAILY 04/02/17 Escitalopram Oxalate [Lexapro] 20 mg PO DAILY 04/02/17 Liothyronine Sodium [Cytomel 25 12.5 mcg PO DAILY 04/02/17 mcg (*)] Multivitamins [Multivitamin (*)] 1 each PO DAILY 04/02/17 Hydrocodone/APAP 5/325 [[place]ray 1 - 2 tab PO Q4HRS PRN #0 tab 04/13/17 5/325 (*)] Acyclovir [Zovirax 400 mg (*)] 400 mg PO DAILY 07/18/17 LORazepam [Lorazepam] 0.5 mg PO TID PRN 07/18/17 Levothyroxine [Synthroid 50 mcg 50 mcg PO DAILY06 07/18/17 (*)] Nystatin 100,000 unit PO QID PRN 07/18/17 Ondansetron [Ondansetron Odt] 8 mg PO Q6 PRN 07/18/17 Prochlorperazine Maleate 10 mg PO TID PRN 07/18/17 [Compazine 10mg (*)] Acetaminophen [Tylenol 325mg (*)] 650 mg PO Q4HRS PRN tab 07/24/17 ceFAZolin 1 GM/DEXTROSE [Ancef 1 1 gm IV Q8H bag 07/24/17 gm (Premix)] Apixaban [Eliquis] 10 mg PO Q12 #14 tablet 07/28/17 Medical Decision Making - Diagnostics EKG Interpretation: EKG for left shoulder pain. 12-lead EKG interpreted by me; official reading is in trace master. My interpretation is sinus rhythm rate 80 no ischemic changes. Imaging Results: Imaging Impressions Extremity Venous Study 07/28/17 19:43 Impression: Deep venous thrombosis in the left axillary vein along the course of the PICC. No extension centrally into the subclavian vein. Findings discussed with emergency department physician, Klever Rousseau MD on July 28, 2017 at 9:03 p.m. Differential Diagnosis: Differential considered including but not limited to ACS, DVT, musculoskeletal, cellulitis, nerve root irritation - Data Points Medications Given: Discontinued Medications Apixaban (Eliquis) 10 mg PO EDNOW ONE Stop: 07/28/17 21:17 Last Admin: 07/28/17 21:32 Dose: 10 mg Departure - Departure Disposition: Home, Routine, Self-Care Clinical Impression: Left upper extremity deep vein thrombosis Qualifiers: Affected thrombotic vein of extremity: axillary Chronicity: acute Qualified Code(s): I82.A12 - Acute embolism and thrombosis of left axillary vein Condition: Good Instructions: Deep Venous Thrombosis (ED) Additional Instructions: Follow-up with Dr. Koch or Dr. Ramirez this week to arrange ongoing anticoagulation medication prescription. Referrals: Crystal Isidro MD [Primary Care Provider] - As per Instructions Jacobo Koch MD [Medical Doctor] - As per Instructions Chasity Ramirez MD [Medical Doctor] - As per Instructions Prescriptions: Apixaban [Eliquis] 10 mg PO Q12 #14 tablet
--- NOTE | 2017-07-28 20:02 | CPEKG ---
Heart Rate: 80 RR Interval: 750 P-R Interval: 140 QRSD Interval: 80 QT Interval: 372 QTC Interval: 430 P Sutton: 18 QRS Sutton: 42 T Wave Sutton: 25 EKG Severity - NORMAL ECG - EKG Impression: SINUS RHYTHM Electronically Signed By: Klever Rousseau 28-Jul-2017 21:50:13
[2017-07-28] MEDS ORDERED: APIXABAN 5 MG TAB PO ONE (21:16)
[2017-07-28 21:27] VITALS: BP 115/82; PULSE 90; TEMP 98.6; O2SAT 98
== END 2017-07-28 21:33 | disposition home or self-care (01) ==
DX: I82.A12 Acute embolism and thrombosis of left axillary vein (principal); J45.909 Unspecified asthma, uncomplicated; Z79.01 Long term (current) use of anticoagulants; Z85.3 Personal history of malignant neoplasm of breast

== ENCOUNTER 2017-08-30 14:32 | Day surgery (SDC) | payer MEDICAID ==
[2017-08-30] MEDS ORDERED: LR 1,000 ML IV ONE (15:27)
--- NOTE | 2017-08-30 15:39 | PDGENHP ---
History & Physical Chief Complaint: right chest wall infection History of Present Illness: s/p right mastectomy, sepsis, implant removal. presents with recurrent right chest wall seroma/abscess. culture pos for pseudomonas. here for washout and remaining alloderm explantation. Pertinent Past, Social, Family History: pmhx hypothyroidism, breast cancer. meds levothyroxine, acyclovir, bupropion, escitalopram, liothyronine, cipro. all sulfa. Relevant Physical Exam: heart reg. lungs clear. right chest wall with open mastectomy incision. no further erythema or purulence. old alloderm/capsule visible Cardiorespiratory Assessment: heart reg. lungs clear.
[2017-08-30] MEDS ORDERED: BUPIVACAINE 0.5% 30 ML SDV ONE (16:15)
[2017-08-30] MEDS ORDERED: LIDOCAINE/EPINEPHRINE 0.5% 50 ML MDV ONE (16:16)
[2017-08-30] MEDS ORDERED: MIDAZOLAM 2 MG/2 ML VIAL IVP ONE (16:18)
--- NOTE | 2017-08-30 16:20 | PDANEPAE ---
ANE History of Present Illness 61 year old female w/ breast cancer s/p right mastectomy presents for I&D of right breast. ANE Past Medical History - Cardiovascular History Hx Hypertension: No Hx Arrhythmias: No Hx Chest Pain: No Hx Coronary Artery / Peripheral Vascular Disease: No Hx CHF / Valvular Disease: No Hx Palpitations: No - Pulmonary History Hx COPD: No Hx Asthma/Reactive Airway Disease: No Hx Recent Upper Respiratory Infection: No Hx Oxygen in Use at Home: No Hx Sleep Apnea: No Pulmonary History Comment: PROLONGED COUGH 02/10/17 TREATED WITH ANTIBIOTIC - Neurologic History Hx Cerebrovascular Accident: No Hx Seizures: No Hx Dementia: No - Endocrine History Hx Diabetes: No Hypothyroid: Yes Hyperthyroid: No Obesity: no Endocrine History Comment: HYPOTHYROID - Renal History Hx Renal Disorders: No - Liver History Hx Hepatic Disorders: No - Neurological & Psychiatric Hx Hx Neurological and Psychiatric Disorders: Yes Neurological / Psychiatric History Comment: MAJOR DEPRESSIVE DISORDER. ANXIETY - Cancer History Hx Cancer: Yes Cancer History Comment: BREAST - Congenital Disorder History Hx Congenital Disorders: No - GI History GERD: no Hx Gastrointestinal Disorders: No - Other Health History Other Health History: CHRONIC HERPES - Chronic Pain History Chronic Pain: No - Surgical History Prior Surgeries: RT LUMPECTOMY 02/2017. APPY/LESLYE. RT ANKLE RECONSTRUCTION ANE Review of Systems Review of systems is: negative Review of Systems: - Exercise capacity Exercise capacity: >=4 METS ANE Patient History - Allergies Allergies/Adverse Reactions: soy Allergy (Severe, Verified 07/28/17 19:33) Sulfa (Sulfonamide Antibiotics) Allergy (Verified 07/28/17 19:33) Rash - Home Medications Home medications: home medication list seen and reviewed Home Medications: Bupropion HCl [Wellbutrin Xl] 300 mg PO DAILY 04/02/17 [Last Taken 08/30/17] Escitalopram Oxalate [Lexapro] 20 mg PO DAILY 04/02/17 [Last Taken 08/30/17] Liothyronine Sodium [Cytomel 25 mcg (*)] 12.5 mcg PO DAILY 04/02/17 [Last Taken 08/30/17] Multivitamins [Multivitamin (*)] 1 each PO DAILY 04/02/17 [Last Taken 08/29/17] Acyclovir [Zovirax 400 mg (*)] 400 mg PO DAILY 07/18/17 [Last Taken 08/30/17] LORazepam [Lorazepam] 0.5 mg PO TID PRN 07/18/17 [Last Taken 08/23/17] Levothyroxine [Synthroid 50 mcg (*)] 50 mcg PO DAILY06 07/18/17 [Last Taken ] Nystatin 100,000 unit PO QID PRN 07/18/17 [Last Taken 07/18/17] Ondansetron [Ondansetron Odt] 8 mg PO Q6 PRN 07/18/17 [Last Taken 08/26/17] Prochlorperazine Maleate [Compazine 10mg (*)] 10 mg PO TID PRN 07/18/17 [Last Taken 07/17/17] Warfarin Sodium 7.5 mg PO Q4D 08/30/17 [Last Taken 08/28/17] Warfarin Sodium 10 mg PO Q3D 08/30/17 [Last Taken 08/28/17] - NPO status NPO Status: no food or drink >8 hours NPO Since - Liquids (Date): 08/30/17 NPO Since - Liquids (Time): 09:30 NPO Since - Solids (Date): 08/30/17 NPO Since - Solids (Time): 07:00 - Anes Hx Anes Hx: no prior problems - Smoking Hx Smoking Status: Never smoked - Alcohol Use Alcohol Use: Rarely - Family Anes Hx Family Anes Hx: neg - N/A ANE Labs/Vital Signs - Vital Signs Vital Signs: reviewed preoperatively; see RN documention for details Blood Pressure: 104/65 Heart Rate: 102 Respiratory Rate: 16 O2 Sat (%): 94 Height: 172.72 cm Weight: 81.647 kg ANE Physical Exam - Airway Neck exam: FROM Mallampati Score: Class 1 Mouth exam: normal dental/mouth exam - Pulmonary Pulmonary: no respiratory distress - Cardiovascular Cardiovascular: regular rate and rhythym - ASA Status ASA Status: III ANE Anesthesia Plan Anesthesia Plan: GA with mask Total IV Anesthesia: Yes
[2017-08-30] MEDS ORDERED: PROPOFOL/EMULSION 500 MG/50 ML BOTTLE IV ONE (16:21)
[2017-08-30] MEDS ORDERED: ONDANSETRON 4 MG/2 ML VIAL ONE (16:30)
[2017-08-30] MEDS ORDERED: DEXAMETHASONE 4 MG/ML VIAL ONE (16:30)
[2017-08-30] MEDS ORDERED: PHENYLEPHRINE HCL 100 MCG/ML SYR ONE (16:49)
[2017-08-30] MEDS ORDERED: NALOXONE HCL 0.4 MG/ML INJ IVP PRN (16:52)
[2017-08-30] MEDS ORDERED: ONDANSETRON 4 MG/2 ML VIAL IVP PRN (16:52)
[2017-08-30] MEDS ORDERED: HYDROCODONE/APAP 5/325 TAB PO PRN (16:52)
[2017-08-30] MEDS ORDERED: LR 500 ML IV PRN (16:52)
[2017-08-30] MEDS ORDERED: fentaNYL 100 MCG/2 ML INJ IVP PRN (16:52)
[2017-08-30] MEDS ORDERED: PROPOFOL 200 MG/20 ML VIAL ONE (17:01)
--- NOTE | 2017-08-30 17:23 | POSTOPPROG ---
Post Op Note Date of Operation: 08/30/17 Surgeon: Chaim Ramirez Anesthesiologist: Rashad Perry Anesthesia: IV Sedation (IVGA) Pre-op Diagnosis: chest wall abscess Post-op Diagnosis: same Procedure: I&D chest wall abscess, mesh explantation, partial capsulectomy Findings: no further purulence. Inf/Abcess present in the surg proc area at time of surgery?: Yes Depth: Deep Incisional (Fascial) (pseudomonas) Drains: Ramon Bates Specimen(s): none
--- NOTE | 2017-08-30 17:39 | POSTANESTH ---
Post Anesthetic Evaluation Cardiovascular Status: Normal, Stable, Similar to Pre-Op Cond Respiratory Status: Normal, Stable, Similar to Pre-op Cond. Level of Consciousness/Mental Status: Can Participate in Eval, Alert and Oriented Pain Control: Adequate, Prn Tx Ordered Nausea/Vomiting Control: Adequate, Prn Tx Ordered Complications Possibly Related to Anesthesia: None Noted
[2017-08-30 17:43] VITALS: PULSE 87
--- NOTE | 2017-08-30 18:39 | GOP ---
[f rep st] OPERATIVE REPORT DATE OF OPERATION: 08/30/2017 SURGEON: Chaim Ramirez MD ANESTHESIA: IV general. ANESTHESIOLOGIST: Dr. Rashad Perry. PREOPERATIVE DIAGNOSIS: Right chest wall abscess. POSTOPERATIVE DIAGNOSIS: Right chest wall abscess. PROCEDURE PERFORMED: Incision and drainage of right chest wall pseudomonas infection with mesh explantation and partial capsulectomy. FINDINGS: See below. INDICATIONS: 61-year-old female with a history of right breast carcinoma. She underwent a prior mastectomy with tissue front of house manager reconstruction. She developed severe sepsis syndrome requiring urgent implant removal. She has had a persistent right chest wall seroma with erythema. This was aspirated last week disclosing pseudomonas. She was found to have a nonhealing central midline wound with exuding AlloDerm. She is taken the operating room today for chest wall washout, capsulectomy, and unincorporated AlloDerm explantation. Risks and benefits were explained, including bleeding, infection, other. All questions were answered. She desires to proceed. DESCRIPTION OF PROCEDURE: After general anesthesia was induced, the right chest skin and chest wall were infiltrated with 1% lidocaine and 0.5% Marcaine. The prior mastectomy incision was reopened. The residual AlloDerm was sharply excised from the mastectomy flaps as well as inframammary fold. The majority of this was not incorporated into soft tissues. The remaining portions of prior breast capsule were easily retrieved as well back to healthy-appearing musculature. The areas of residual capsule were all abraded using electrocautery. The cavity was pulse lavaged. There was no purulence whatsoever and the surrounding soft tissues were all pink, healthy and granulating. The skin was also without further erythema prior to starting the case today. Satisfactory hemostasis was assured. The defect was closed in layers over a 10 flat Ramon-Bates drain using absorbable suture followed by Dermabond. The patient was taken to Recovery awake uneventfully. /[id number]/MODL MTDD
[2017-08-30 18:41] VITALS: BP 104/71; RESP 14; TEMP 97.3; O2SAT 97
== END 2017-08-30 18:34 | disposition home or self-care (01) ==
LOC: FSGY 14:32
PROVIDERS: ATTEND Surgery
DX: L02.213 Cutaneous abscess of chest wall (principal); Z85.3 Personal history of malignant neoplasm of breast; Z90.11 Acquired absence of right breast and nipple
CPT/HCPCS: J1100; J1642; J2250; J2370; J2405; J2704

== ENCOUNTER 2017-09-06 09:59 | Outpatient (CLI) | payer MEDICAID ==
[2017-09-06 10:45] LABS: % IMMATURE GRANULYOCYTES 0.6 % (0.0-1.1); ABSOLUTE IMMATURE GRANULOCYTES 0.01 10^3/uL (0.00-0.10); ADD DIFF? NO; ADD MORPH? NO; ADD SCAN? NO; ATYPICAL LYMPHOCYTE FLAG 0 (0-99); FRAGMENT RBC FLAG 20 (0-99); HEMATOCRIT 29.4 % (38.0-47.0); HEMOGLOBIN 9.9 g/dL (12.6-16.3); LEFT SHIFT FLG 0 (0-99); LIPEMIA HEMOLYSIS FLAG 80 (0-99); MEAN CELL HEMOGLOBIN 31.6 pg (27.9-34.1); MEAN CELL HEMOGLOBIN CONCENTR. 33.7 g/dL (32.4-36.7); MEAN CELL VOLUME 93.9 fL (81.5-99.8); MEAN PLATELET VOLUME 9.3 fL (8.7-11.7); PLATELET CLUMPS FLAG 10 (0-99); PLATELET COUNT 252 10^3/uL (150-400); RED BLOOD CELL COUNT 3.13 10^6/uL (4.18-5.33); RED CELL DISTRIBUTION WIDTH 17.3 % (11.5-15.2)
[2017-09-06] MEDS ORDERED: FAMOTIDINE 20 MG/NACL 50 ML IV SCH (11:15)
[2017-09-06] MEDS ORDERED: DEXAMETHASONE 4 MG TAB PO SCH (11:15)
[2017-09-06] MEDS ORDERED: ONDANSETRON 4 MG/2 ML VIAL IVP SCH (11:15)
[2017-09-06] MEDS ORDERED: NS IV SCH (11:45)
[2017-09-06] MEDS ORDERED: PACLITAXEL IV SCH (11:45)
[2017-09-06 15:05] VITALS: BP 103/68; PULSE 86; RESP 16; TEMP 98.4; O2SAT 94
== END 2017-09-06 15:18 | disposition home or self-care (01) ==
LOC: F1NOP 09:59
PROVIDERS: ATTEND Internal Medicine Hematology & Oncology
DX: Z51.11 Encounter for antineoplastic chemotherapy (principal); C50.919 Malignant neoplasm of unspecified site of unspecified female breast
CPT/HCPCS: J1200; J1642; J9267

== ENCOUNTER → 2018-03-13 | Outpatient (CLI) | payer MEDICAID | LOC: FIMAGING 11:30 | PROVIDERS: ATTEND Internal Medicine Hematology & Oncology | DX: Z12.31 Encounter for screening mammogram for malignant neoplasm of breast (principal); Z85.3 Personal history of malignant neoplasm of breast; Z90.11 Acquired absence of right breast and nipple ==

== ENCOUNTER → 2018-03-21 | Outpatient (CLI) | payer MEDICAID | LOC: FIMAGING 09:59 | PROVIDERS: ATTEND Internal Medicine Hematology & Oncology | DX: R92.8 Other abnormal and inconclusive findings on diagnostic imaging of breast (principal); Z85.3 Personal history of malignant neoplasm of breast ==

== ENCOUNTER → 2019-03-17 | Outpatient (CLI) | payer MEDICAID | LOC: FIMAGING 09:39 ==